=== PATIENT | female | born 1990 | race Caucasian/White ===

== ENCOUNTER 2016-04-11 19:24 | Emergency (ER) | payer OTHER ==
[2016-04-11 19:28] VITALS: BP 143/81; PULSE 80; RESP 18; TEMP 98.1
--- NOTE | 2016-04-11 20:25 | ED ---
General Adult HPI - General Chief complaint: Upper Respiratory Infection Stated complaint: cough/sore throat Source: patient, RN notes reviewed Mode of arrival: ambulatory Limitations: no limitations - History of Present Illness Initial comments: Is a 26-year-old female presents with dry cough, congestion, sneezing and sore throat that started yesterday. Patient denies any fever/chills, otalgia and admits to a mild headache. Patient states she had an episode of vomiting and diarrhea yesterday but this has not reoccurred. He denies any shortness of breath. Patient states she has family at home sick with similar symptoms. Patient did not receive a flu shot this year. Patient denies any recent chest pain, abdominal pain, back pain, numbness, tingling, hematuria, or visual changes, or any other complaints. - Related Data Previous Rx's Medication Instructions Recorded Fluticasone Nasal [place] [Flonase 1 - 2 spray EA NOSTRIL DAILY #1 04/11/16 Nasal [place]] bottle Allergies Allergy/AdvReac Type Severity Reaction Status Date / Time Sulfa (Sulfonamide Allergy Rash/Hives Verified 04/11/16 19:28 Antibiotics) Review of Systems ROS Statement: Those systems with pertinent positive or pertinent negative responses have been documented in the HPI. ROS Other: All systems not noted in ROS Statement are negative. Past Medical History Past Medical History: No Reported History History of Any Multi-Drug Resistant Organisms: None Reported Past Surgical History: Section, Tonsillectomy Past Psychological History: No Psychological Hx Reported Smoking Status: Current every day smoker Past Alcohol Use History: None Reported Past Drug Use History: None Reported General Exam - General Exam Comments Initial Comments: General: The patient is awake and alert, in no distress, and does not appear acutely ill. Eye: Pupils are equal, round and reactive to light, extra-ocular movements are intact. No nystagmus. There is normal conjunctiva bilaterally. No signs of icterus. Ears: TMs pink and pearly with intact cone of light bilaterally. Normal external ear canals Nose: Nasal turbinates mildly erythematous and edematous with discomfort to palpation of the frontal sinus. Mouth and throat: Mild erythema posterior pharynx. There are moist mucous membranes and no oral lesions. Neck: The neck is supple, there is no tenderness or JVD. Cardiovascular: There is a regular rate and rhythm. No murmur, rub or gallop is appreciated. Respiratory: Lungs are clear to auscultation, respirations are non-labored, breath sounds are equal. No wheezes, stridor, rales, or rhonchi. Musculoskeletal: Normal ROM, no tenderness. Strength 5/5. Sensation intact. Radial pulses equal bilaterally 2+. Neurological: A&O x 3. CN II-XII intact, There are no obvious motor or sensory deficits. Coordination appears grossly intact. Speech is normal. Skin: Skin is warm and dry and no rashes or lesions are noted. Psychiatric: Cooperative, appropriate mood & affect, normal judgment. Limitations: no limitations Course Vital Signs 04/11/16 19:26 Temperature 98.1 F Pulse Rate 80 Respiratory 18 Rate Blood Pressure 143/81 O2 Sat by Pulse 98 Oximetry Medical Decision Making - Medical Decision Making This is a 26-year-old female comes with cough 2 days. On physical exam lungs are clear to auscultation bilaterally. Nose: Nasal turbinates mildly erythematous and edematous with discomfort to palpation of the frontal sinus. Mouth and throat: Mild erythema posterior pharynx. There are moist mucous membranes and no oral lesions. Strep and influenza were checked and came back negative. A chest x-ray was done and reviewed showing: Normal chest. Reported by Dr. Valdez. I discussed the results with patient. I discussed sinusitis. I discussed sinusitis is usually viral. I discussed [id number] remedies. Patient will be given a prescription for Flonase. I discussed return parameters. Discussed that patient should follow up with PCP in one to 2 days or return to the [facility] for any worsening symptoms or for any further concerns. Patient was receptive to this plan and patient will be discharged home. - Lab Data Lab Results 04/11/16 04/11/16 Range/Units 19:50 19:50 Influenza Type A RNA Not Detected (Not Detectd) Influenza Type B (PCR) Not Detected (Not Detectd) Group A Strep Rapid Negative (Negative) Disposition Clinical Impression: Sinusitis Disposition: HOME SELF-CARE Condition: Good Instructions: Sinusitis (ED) Additional Instructions: Please use Claritin 10 mg, Sudafed OTC, saline nasal rinse such as netti-pot for symptoms. Please use a nasal spray 1-2 sprays in each nostril daily. May use Tylenol and/or Motrin [id number] for fever and pain symptoms. Please use medication as discussed. Please follow-up with family doctor in the next 2 days of symptoms have not improved. Please return to emergency room if the symptoms increase or worsen or for any other concerns. Prescriptions: Fluticasone Nasal [place] [Flonase Nasal [place]] 1 - 2 spray EA NOSTRIL DAILY #1 bottle Referrals: None,Stated [Primary Care Provider] - 1-2 days Radha Faustin MD [STAFF PHYSICIAN] - 1-2 days Time of Disposition: 20:39
--- NOTE | 2016-04-11 20:37 | XR ---
EXAMINATION TYPE: XR chest 2V DATE OF EXAM: 04/11/2016 8:33 PM COMPARISON: NONE HISTORY: Cough and congestion TECHNIQUE: Frontal and lateral views of the chest are obtained. FINDINGS: Heart and mediastinum are normal. Lungs are clear. Diaphragm is normal. Bony thorax and so ft tissues appear normal. IMPRESSION: Normal chest
== END 2016-04-11 20:45 | disposition home or self-care (01) ==
LOC: EC 19:24
DX: J32.9 Chronic sinusitis, unspecified (principal); Z88.2 Allergy status to sulfonamides; F17.200 Nicotine dependence, unspecified, uncomplicated
CPT/HCPCS: 71020; 87081; 87430; 87502; 99283

== ENCOUNTER 2020-02-17 18:01 | Emergency (ER) | payer OTHER ==
[2020-02-17 18:19] VITALS: BP 157/93; PULSE 83; RESP 18; TEMP 97.9
--- NOTE | 2020-02-17 18:44 | ED ---
General Adult HPI - General Chief complaint: Back Pain/Injury Stated complaint: Lower back pain Time Seen by Provider: 02/17/20 18:25 Source: patient Mode of arrival: ambulatory Limitations: no limitations - History of Present Illness Initial comments: Dictation was produced using [employer] dictation software. please excuse any grammatical, word or spelling errors. This patient was cared for during a federal and state declared state of emergency secondary to Covid 19 Chief Complaint: 30-year-old female presents with hip and back pain History of Present Illness: 30-year-old feel presents today with hip and back pain. Patient states she has history of sciatica. She states that her pain started becoming more noticeable since this morning. Patient states maybe that perhaps her pain started yesterday. Patient denies any unusual increases and exertion. She does not recall anything that may have exacerbated her symptoms. Patient states the pain radiates from her back down to her right gluteal area. Denies any numbness and paresthesias to the leg. Patient states that last time she had symptoms like this she thought maybe that was maybe her urinary tract infection. The ROS documented in this emergency department record has been reviewed and confirmed by me. Those systems with pertinent positive or negative responses have been documented in the HPI. All other systems are other negative and/or noncontributory. PHYSICAL EXAM: General Impression: Alert and oriented x3, not in acute distress HEENT: Normocephalic atraumatic, extra-ocular movements intact, pupils equal and reactive to light bilaterally, mucous membranes moist. Cardiovascular: Heart regular rate and rhythm Chest: Able to complete full sentences, no retractions, no tachypnea Abdomen: abdomen soft, non-tender, non-distended, no organomegaly Musculoskeletal: Pulses present and equal in all extremities, no peripheral edema Motor: no focal deficits noted Neurological: CN II-XII grossly intact, no focal motor or sensory deficits noted, ambulatory with a mild limp Skin: Intact with no visualized rashes Psych: Normal affect and mood ED course: 30-year-old female presents today with hip and back pain. Vital Signs upon arrival are within acceptable limits. Urinalysis unremarkable. Urine hCG is negative. The pelvis x-ray shows no acute processes. Lumbar spine x-rays negative. He does however appear to be some hypertrophic costochondral changes at L2-3. Patient notified of these results patient is advised follow-up with her primary care physician for outpatient management of her symptoms. Patient given by mouth analgesics. - Related Data Previous Rx's Medication Instructions Recorded Fluticasone Nasal [place] [Flonase 1 - 2 spray EA NOSTRIL DAILY #1 04/11/16 Nasal [place]] bottle HYDROcodone/APAP 5-325MG [[place] 1 tab PO Q6HR PRN 3 Days #12 tab 02/17/20 5-325] Allergies Allergy/AdvReac Type Severity Reaction Status Date / Time Sulfa (Sulfonamide Allergy Rash/Hives Verified 02/17/20 18:19 Antibiotics) Review of Systems ROS Statement: Those systems with pertinent positive or pertinent negative responses have been documented in the HPI. ROS Other: All systems not noted in ROS Statement are negative. Past Medical History Past Medical History: No Reported History History of Any Multi-Drug Resistant Organisms: None Reported Past Surgical History: Section, Tonsillectomy Past Psychological History: No Psychological Hx Reported Smoking Status: Current every day smoker Past Alcohol Use History: None Reported Past Drug Use History: None Reported General Exam Limitations: no limitations Course Vital Signs 02/17/20 18:15 Temperature 97.9 F Pulse Rate 83 Respiratory 18 Rate Blood Pressure 157/93 O2 Sat by Pulse 98 Oximetry Medical Decision Making - Lab Data Lab Results 02/17/20 02/17/20 Range/Units 18:34 18:34 Urine Color Yellow Urine Appearance Cloudy H (Clear) Urine pH 6.5 (5.0-8.0) Ur Specific [place] 1.030 (1.001-1.035) Urine Protein Trace H (Negative) Urine Glucose (UA) Negative (Negative) Urine Ketones Negative (Negative) Urine Blood Moderate H (Negative) Urine Nitrite Negative (Negative) Urine Bilirubin Negative (Negative) Urine Urobilinogen 2.0 (<2.0) mg/dL Ur Leukocyte Esterase Negative (Negative) Urine RBC 1 (0-5) /hpf Urine WBC 4 (0-5) /hpf Ur Squamous Epith Cells 21 H (0-4) /hpf Amorphous Sediment Few H (None) /hpf Urine Bacteria Rare H (None) /hpf Urine Mucus Rare H (None) /hpf Urine HCG, Qual Not Detected (Not Detectd) Disposition Clinical Impression: Back pain, Hip pain Disposition: HOME SELF-CARE Condition: Good Instructions (If sedation given, give patient instructions): Acute Low Back Pain (ED) Prescriptions: HYDROcodone/APAP 5-325MG [[place] 5-325] 1 tab PO Q6HR PRN 3 Days #12 tab PRN Reason: Severe Pain Is patient prescribed a controlled substance at d/c from ED?: Yes If prescribed controlled substance>3 days was MAPS reviewed?: Prescribed <3 Days Referrals: Kenneth Bateman MD [Primary Care Provider] - 1-2 days Time of Disposition: 19:52
[2020-02-17 18:56] LABS: Amorphous Sediment,Urine Few /hpf; Appearance,Urine Cloudy (Clear); Bacteria,Urine Rare /hpf; Bilirubin,Urine Negative (Negative); Blood,Urine Moderate (Negative); Color,Urine Yellow; Glucose,Urine (UA) Negative (Negative); Ketones,Urine Negative (Negative); Leukocyte Esterase,Urine Negative (Negative); Mucus,Urine Rare /hpf; Nitrite,Urine Negative (Negative); PH, Urine 6.5 (5.0-8.0); Protein,Urine Trace (Negative); RBC,Urine 1 /hpf (0-5); Squamous Epithelial Cell,Urine 21 /hpf (0-4); WBC,Urine 4 /hpf (0-5)
--- NOTE | 2020-02-17 19:38 | XR ---
EXAMINATION TYPE: XR lumbar spine 2 or 3V DATE OF EXAM: 02/17/2020 COMPARISON: NONE HISTORY: Back pain TECHNIQUE: 3 views FINDINGS: Lumbar vertebra have normal alignment. There is some anterior spurring at L2-3. Posterior e lements are intact. There is no compression fracture. Sacroiliac joints are intact. IMPRESSION: No acute abnormality of the lumbar spine. No fracture. There are some hypertrophic osteoc hondral changes at L2-3.
--- NOTE | 2020-02-17 19:44 | XR ---
EXAMINATION TYPE: XR Hip RT and AP Pelvis DATE OF EXAM: 02/17/2020 COMPARISON: NONE HISTORY: Pain TECHNIQUE: 3 views FINDINGS: Pelvic ring is intact. Proximal right femur and hip joint appear normal. Sacroiliac joints appear normal. Hip joint spaces are normal. IMPRESSION: Negative right hip exam.
[2020-02-17] MEDS ORDERED: ACET/COD 300 MG/30 MG STARTER PACK 6 TAB BTL PO STA (19:54)
== END 2020-02-17 20:08 | disposition home or self-care (01) ==
LOC: EC 18:01
DX: M54.5 Low back pain (principal); M25.551 Pain in right hip; F17.200 Nicotine dependence, unspecified, uncomplicated; Z88.2 Allergy status to sulfonamides
CPT/HCPCS: 72100; 73502; 81001; 81025; 99283

== ENCOUNTER → 2020-09-26 | Outpatient (CLI) | payer OTHER ==
--- NOTE | 2020-09-26 11:51 | P.STRESS ---
- Stress Test Note Stress Test Results/Findings: Exam Performed: stress test Exam Date: 09/26/20 Reason for Exam: FAMILY HX OF CAD Height: 5 ft 5 in Weight: 107 kg Protocol: IRVIN Stage: 3 Duration of Exercise: 7:15 Resting Heart Rate: 78 Resting Blood Pressure: 114/78 Maximum Achieved Heart Rate: 181 Maximum Achieved Blood Pressure: 183/92 85% PMHR: 163 100% PMHR: 192 METS: 8.7 Technologist Comment: Stress Test Results/Findings: Patient underwent exercise stress EKG with a Irvin protocol treadmill stress test. Patient exercised into Stage 3 for a total of 7 minutes 15 seconds reaching a total of the 8.7 METS. Patient's maximum heart rate was 180 which represented 94% age-predicted maximum heart rate. Stress EKG findings: At baseline patient's EKG showed normal sinus rhythm, normal axis, no significant ST or T-wave abnormalities. At peak exercise, EKG showed no significant change from baseline. Conclusions: 1. Normal EKG response to exercise without evidence of inducible ischemia. 2. Fair exercise capacity.
== END | disposition home or self-care (01) ==
LOC: RADNMMAIN 08:38
PROVIDERS: ATTEND Family Medicine
DX: I20.9 Angina pectoris, unspecified (principal); R06.02 Shortness of breath; Z82.49 Family history of ischemic heart disease and other diseases of the circulatory system
CPT/HCPCS: 93017

== ENCOUNTER → 2021-02-08 | Outpatient (CLI) | payer OTHER | END | disposition home or self-care (01) | LOC: LABWHC1 15:15 | PROVIDERS: ATTEND Obstetrics & Gynecology | DX: N91.2 Amenorrhea, unspecified (principal) | CPT/HCPCS: 36415; 84702 ==

== ENCOUNTER → 2021-02-12 | Outpatient (CLI) | payer OTHER | END | disposition home or self-care (01) | LOC: LABWHC1 13:18 | PROVIDERS: ATTEND Obstetrics & Gynecology | DX: Z33.1 Pregnant state, incidental (principal); Z3A.00 Weeks of gestation of pregnancy not specified | CPT/HCPCS: 36415; 84702 ==

== ENCOUNTER → 2021-02-15 | Outpatient (CLI) | payer OTHER | END | disposition home or self-care (01) | LOC: LABWHC1 15:38 | PROVIDERS: ATTEND Obstetrics & Gynecology | DX: Z33.1 Pregnant state, incidental (principal) | CPT/HCPCS: 36415; 84702 ==

== ENCOUNTER 2021-10-02 19:50 | Inpatient (IN) | payer OTHER ==
[2021-10-02] MEDS ORDERED: LABETALOL 5 MG/ML VIAL MDV IVP STA ×2 (20:10→21:27)
[2021-10-02] MEDS ORDERED: MAGNESIUM SULFATE-WATER PMX 4 GM in WATER FOR INJECTION 1 100ML.BAG IVPB STA (20:14)
[2021-10-02] MEDS ORDERED: MAGNESIUM SULFATE-D5W PMX 1 GM in DEXTROSE/WATER 1 100ML.BAG IVPB SCH (20:15)
[2021-10-02] MEDS: MAGNESIUM SULFATE-WATER PMX 20 GM in WATER FOR INJECTION 1 500ML.BAG IV SCH (20:35)
[2021-10-02 20:37] LABS: Basophils % (A) 1 %; Eosinophils # (A) 0.1 k/uL (0-0.7); Eosinophils % (A) 1 %; HCT 22.8 % (34.0-46.0); HGB 7.2 gm/dL (11.4-16.0); Hypochromasia Slight; Lymphocytes # (A) 1.7 k/uL (1.0-4.8); Lymphocytes % (A) 25 %; MCH 26.9 pg (25.0-35.0); MCHC 31.7 g/dL (31.0-37.0); MCV 84.8 fL (80.0-100.0); Mean Platelet Volume 7.6; Monocytes # (A) 0.3 k/uL (0-1.0); Monocytes % (A) 5 %; Neutrophils # (A) 4.5 k/uL (1.3-7.7); Neutrophils % (A) 66 %; Platelet Count 398 k/uL (150-450); Poikilocytosis Slight; RBC 2.69 m/uL (3.80-5.40); RDW 13.8 % (11.5-15.5); WBC 6.8 k/uL (3.8-10.6)
[2021-10-02 20:50] LABS: ALT 20 U/L (4-34); AST 26 U/L (14-36); African American GFR (CKD) >90 (>60 ml/min/1.73 sqM); Alkaline Phosphatase 80 U/L (38-126); Anion Gap 11 mmol/L; Blood Urea Nitrogen 11 mg/dL (7-17); Calcium 8.6 mg/dL (8.4-10.2); Carbon Dioxide 20 mmol/L (22-30); Chloride 107 mmol/L (98-107); Glucose 80 mg/dL (74-99); LDH 743 U/L (313-618); Non-African American GFR(CKD) >90 (>60 ml/min/1.73 sqM); Potassium 3.8 mmol/L (3.5-5.1); Sodium 138 mmol/L (137-145); Total Bilirubin 0.5 mg/dL (0.2-1.3); Total Protein 5.8 g/dL (6.3-8.2); Uric Acid 6.4 mg/dL (3.7-7.4)
--- NOTE | 2021-10-02 20:54 | XR ---
EXAMINATION TYPE: XR chest 2V DATE OF EXAM: 10/02/2021 COMPARISON: 04/11/2016 HISTORY: Cough TECHNIQUE: 2 views FINDINGS: There is some pulmonary interstitial edema. Heart size is fairly normal. No pleural effusio n. Bony thorax is intact. IMPRESSION: There is pulmonary interstitial edema which appears new compared to old exam and could be acute interstitial pneumonia.
[2021-10-02 20:57] LABS: INR 0.9 (<1.2); Prothrombin Time 10.2 sec (9.0-12.0)
--- NOTE | 2021-10-02 22:25 | ED ---
SOB HPI - General Chief Complaint: Shortness of Breath Stated Complaint: DIONISIO, cough Source: patient Mode of arrival: ambulatory - History of Present Illness Initial Comments: 31-year-old female who is , 7 days presents to the emergency department for shortness of breath. She did have a history of preeclampsia and was delivered he has at 37 weeks because of it. Her OB was Dr. Terry out of [facility]. She did have a follow-up appointment yesterday where her raven removed. She was complaining of continued lower extremity edema and Dr. Terry placed her on a diuretic. States that she has not picked it up from the pharmacy yet. Her blood pressure was around 140/80 and she was not having the symptoms of shortness of breath. States that overnight she became short of breath with a nonproductive cough. Also has a headache without visual changes. No abdominal pain. No fevers or chills. No nausea or vomiting. He is currently not taking any medications for blood pressure at this time. She denies any chest pain. Currently is breast-feeding. No other alleviating, precipitating or modifying factors - Related Data Home Medications Medication Instructions Recorded Confirmed No Known Home Medications 10/02/21 10/02/21 Allergies Allergy/AdvReac Type Severity Reaction Status Date / Time Sulfa (Sulfonamide Allergy Rash/Hives Verified 10/02/21 23:06 Antibiotics) Review of Systems ROS Statement: Those systems with pertinent positive or pertinent negative responses have been documented in the HPI. ROS Other: All systems not noted in ROS Statement are negative. Past Medical History Past Medical History: No Reported History History of Any Multi-Drug Resistant Organisms: None Reported Past Surgical History: Section, Tonsillectomy Past Psychological History: No Psychological Hx Reported Smoking Status: Vaper Course Vital Signs 10/02/21 10/02/21 10/02/21 19:57 20:40 21:21 Temperature 98.0 F Pulse Rate 91 86 79 Respiratory 24 20 24 Rate Blood Pressure 162/102 140/89 152/95 O2 Sat by Pulse 91 L 96 95 Oximetry 10/02/21 10/02/21 10/02/21 22:07 22:37 22:41 Temperature Pulse Rate 79 Respiratory 24 24 26 H Rate Blood Pressure 143/86 141/89 O2 Sat by Pulse 95 96 Oximetry 10/02/21 23:39 Temperature Pulse Rate 78 Respiratory 14 Rate Blood Pressure 133/80 O2 Sat by Pulse 93 L Oximetry Medical Decision Making - Medical Decision Making Upon arrival patient is promptly placed into trauma 1. Thorough history and physical exam was performed. Patient's blood pressure is 160/102 with a oxygen saturation of 80% on room air. She is placed on 4 L nasal cannula. IV is established. Patient was given 20 mg of labetalol and 4 g of magnesium. Laboratory studies are conducted. Hemoglobin 7.2. D-dimer 4.8. BNP 1000 780. LDH 746. Urinalysis does demonstrate rare bacteria. She is given a dose of Rocephin for her abnormal UA. Chest x-ray demonstrates pulmonary edema which is followed by a CT of the chest which demonstrates pleural effusions and groundglass opacities. I spoke with Dr. Castaneda who was agreeable to keeping the patient at her facility as she does not want to be transferred to [facility] where she delivered. He would like to be placed on consult as he is concerned that the patient will additionally need cardiology consultation. Spoke with Luisa from [facility] who was agreeable to admission. Spoke with Dr. Lucio who stated that diuresis would be helpful. Patient is informed of this and agreeable. Admitted to 3 S. with a guarded prognosis - Lab Data Result diagrams: 10/02/21 20:26 10/02/21 20:26 Lab Results 10/02/21 10/02/21 10/02/21 Range/Units 20:26 20:26 20:26 WBC 6.8 (3.8-10.6) k/uL RBC 2.69 L (3.80-5.40) m/uL Hgb 7.2 L (11.4-16.0) gm/dL Hct 22.8 L (34.0-46.0) % MCV 84.8 (80.0-100.0) fL MCH 26.9 (25.0-35.0) pg MCHC 31.7 (31.0-37.0) g/dL RDW 13.8 (11.5-15.5) % Plt Count 398 (150-450) k/uL MPV 7.6 Neutrophils % 66 % Lymphocytes % 25 % Monocytes % 5 % Eosinophils % 1 % Basophils % 1 % Neutrophils # 4.5 (1.3-7.7) k/uL Lymphocytes # 1.7 (1.0-4.8) k/uL Monocytes # 0.3 (0-1.0) k/uL Eosinophils # 0.1 (0-0.7) k/uL Basophils # 0.0 (0-0.2) k/uL Hypochromasia Slight Poikilocytosis Slight PT 10.2 (9.0-12.0) sec INR 0.9 (<1.2) D-Dimer 4.84 H (<0.60) mg/L FEU Sodium 138 (137-145) mmol/L Potassium 3.8 (3.5-5.1) mmol/L Chloride 107 (98-107) mmol/L Carbon Dioxide 20 L (22-30) mmol/L Anion Gap 11 mmol/L BUN 11 (7-17) mg/dL Creatinine 0.70 (0.52-1.04) mg/dL Est GFR (CKD-EPI)AfAm >90 (>60 ml/min/1.73 sqM) Est GFR (CKD-EPI)NonAf >90 (>60 ml/min/1.73 sqM) Glucose 80 (74-99) mg/dL Uric Acid 6.4 (3.7-7.4) mg/dL Calcium 8.6 (8.4-10.2) mg/dL Total Bilirubin 0.5 (0.2-1.3) mg/dL AST 26 (14-36) U/L ALT 20 (4-34) U/L Alkaline Phosphatase 80 (38-126) U/L Lactate Dehydrogenase 743 H (313-618) U/L Troponin I (0.000-0.034) ng/mL NT-Pro-B Natriuret Pep pg/mL Total Protein 5.8 L (6.3-8.2) g/dL Albumin 3.0 L (3.5-5.0) g/dL Urine Color Urine Appearance (Clear) Urine pH (5.0-8.0) Ur Specific [place] (1.001-1.035) Urine Protein (Negative) Urine Glucose (UA) (Negative) Urine Ketones (Negative) Urine Blood (Negative) Urine Nitrite (Negative) Urine Bilirubin (Negative) Urine Urobilinogen (<2.0) mg/dL Ur Leukocyte Esterase (Negative) Urine RBC (0-5) /hpf Urine WBC (0-5) /hpf Ur Squamous Epith Cells (0-4) /hpf Urine Bacteria (None) /hpf Urine Mucus (None) /hpf 10/02/21 10/02/21 10/02/21 Range/Units 20:26 20:26 22:07 WBC (3.8-10.6) k/uL RBC (3.80-5.40) m/uL Hgb (11.4-16.0) gm/dL Hct (34.0-46.0) % MCV (80.0-100.0) fL MCH (25.0-35.0) pg MCHC (31.0-37.0) g/dL RDW (11.5-15.5) % Plt Count (150-450) k/uL MPV Neutrophils % % Lymphocytes % % Monocytes % % Eosinophils % % Basophils % % Neutrophils # (1.3-7.7) k/uL Lymphocytes # (1.0-4.8) k/uL Monocytes # (0-1.0) k/uL Eosinophils # (0-0.7) k/uL Basophils # (0-0.2) k/uL Hypochromasia Poikilocytosis PT (9.0-12.0) sec INR (<1.2) D-Dimer (<0.60) mg/L FEU Sodium (137-145) mmol/L Potassium (3.5-5.1) mmol/L Chloride (98-107) mmol/L Carbon Dioxide (22-30) mmol/L Anion Gap mmol/L BUN (7-17) mg/dL Creatinine (0.52-1.04) mg/dL Est GFR (CKD-EPI)AfAm (>60 ml/min/1.73 sqM) Est GFR (CKD-EPI)NonAf (>60 ml/min/1.73 sqM) Glucose (74-99) mg/dL Uric Acid (3.7-7.4) mg/dL Calcium (8.4-10.2) mg/dL Total Bilirubin (0.2-1.3) mg/dL AST (14-36) U/L ALT (4-34) U/L Alkaline Phosphatase (38-126) U/L Lactate Dehydrogenase (313-618) U/L Troponin I <0.012 (0.000-0.034) ng/mL NT-Pro-B Natriuret Pep 1780 pg/mL Total Protein (6.3-8.2) g/dL Albumin (3.5-5.0) g/dL Urine Color Yellow Urine Appearance Cloudy H (Clear) Urine pH 6.5 (5.0-8.0) Ur Specific [place] 1.011 (1.001-1.035) Urine Protein 1+ H (Negative) Urine Glucose (UA) Negative (Negative) Urine Ketones Negative (Negative) Urine Blood Large H (Negative) Urine Nitrite Negative (Negative) Urine Bilirubin Negative (Negative) Urine Urobilinogen <2.0 (<2.0) mg/dL Ur Leukocyte Esterase Large H (Negative) Urine RBC >182 H (0-5) /hpf Urine WBC 111 H (0-5) /hpf Ur Squamous Epith Cells 2 (0-4) /hpf Urine Bacteria Rare H (None) /hpf Urine Mucus Rare H (None) /hpf - EKG Data EKG Comments: EKG demonstrates sinus rhythm with a rate of 80. ND interval 152. QRS 116. QTC of 426. Inverted T-wave with mild ST depression in lead 3. Mild ST depression in V5 and V6 Disposition Clinical Impression: Eclampsia, Hypertension Disposition: ADMITTED IP TO THIS HOSP Condition: Serious Is patient prescribed a controlled substance at d/c from ED?: No Time of Disposition: 23:15 Decision to Admit Reason: Admit from EC Decision Date: 10/02/21 Decision Time: 23:16
[2021-10-02 22:30] LABS: Appearance,Urine Cloudy (Clear); Bacteria,Urine Rare /hpf; Bilirubin,Urine Negative (Negative); Blood,Urine Large (Negative); Color,Urine Yellow; Glucose,Urine (UA) Negative (Negative); Ketones,Urine Negative (Negative); Leukocyte Esterase,Urine Large (Negative); Mucus,Urine Rare /hpf; Nitrite,Urine Negative (Negative); PH, Urine 6.5 (5.0-8.0); Protein,Urine 1+ (Negative); RBC,Urine >182 /hpf (0-5); Specific Gravity,Urine 1.011 (1.001-1.035); Squamous Epithelial Cell,Urine 2 /hpf (0-4); Urobilinogen,Urine <2.0 mg/dL (<2.0); WBC,Urine 111 /hpf (0-5)
--- NOTE | 2021-10-02 22:35 | CT ---
EXAMINATION TYPE: CT chest angio for PE DATE OF EXAM: 10/02/2021 COMPARISON: None HISTORY: SOB, elevated d dimer CT DLP: 779.6 mGycm Automated exposure control for dose reduction was used. CONTRAST: Performed with IV Contrast, patient injected with 100ml mL of Isovue 370. There are 3-D post processed images. There is small right and left pleural effusion. Heart size is fairly normal. There is diffuse pulmona ry interstitial edema with patchy groundglass densities throughout the lungs. There are no hilar mass es. There is no mediastinal adenopathy. There is no evidence of filling defect in the pulmonary arteries. The thoracic vertebra appear intact. No compression fracture. Sternum is intact. No evidence of rib f racture. The thoracic aorta appears normal. The upper abdominal soft tissues are intact. IMPRESSION: No evidence of pulmonary embolism. There is some patchy bilateral upper and lower lobe groundglass in terstitial pulmonary infiltrates. Small bilateral pleural effusions.
[2021-10-02] MEDS ORDERED: cefTRIAXone IN SWFI 1,000 MG/10 ML SYRINGE IVP STA (23:06)
[2021-10-02] MEDS ORDERED: ACETAMINOPHEN TAB 500 MG TAB PO STA (23:15)
[2021-10-02] MEDS ORDERED: NALOXONE 0.4 MG/ML 1 ML VIAL IV PRN (23:16)
[2021-10-03] MEDS ORDERED: LABETALOL 5 MG/ML VIAL MDV IVP PRN (00:47)
[2021-10-03] MEDS ORDERED: FUROSEMIDE 10 MG/ML 4 ML VIAL IV STA (00:51)
[2021-10-03] MEDS: ACETAMINOPHEN TAB 325 MG TAB PO PRN ×2 (02:44→13:32)
[2021-10-03] MEDS: IPRATROPIUM-ALBUTEROL 3 ML NEB INHALATION PRN ×4 (02:47→15:41)
[2021-10-03] MEDS: MAGNESIUM SULFATE-WATER PMX 20 GM in WATER FOR INJECTION 1 500ML.BAG IV SCH ×2 (05:45→18:17)
--- NOTE | 2021-10-03 06:51 | P.HPOB ---
History of Present Illness H&P Date: 10/03/21 Chief Complaint: Shortness of breath status post This patient is a 31-year-old 3 para 3 female who is status post a repeat section on September [address] Terry at [facility]. Patient states that she had a section done at 37 weeks due to previous classical section with her first and because she had elevated blood pressures. Patient indicates that she was in the hospital for approximately [address] Terry in the office on Friday and was having some shortness of breath and peripheral edema and apparently he was going to send and a diuretic. Patient became acutely short of breath overnight Friday night and Friday presented to this emergency department. Evaluation here showed an elevated blood pressure 162/107. Patient had evidence of pulmonary edema. She did have a chest CT that ruled out pulmonary embolism. Her hemoglobin also was 7.2. I asked her if she did have excessive bleeding at the time of delivery and she was uncertain however she states that she has been on iron for the last 2 weeks. Patient did have a tubal ligation at the time of her section. Review of Systems Constitutional: Reports as per HPI Cardiovascular: Reports shortness of breath Respiratory: Reports as per HPI, Reports cough Genitourinary: Reports as per HPI Past Medical History Past Medical History: No Reported History History of Any Multi-Drug Resistant Organisms: None Reported Past Surgical History: Section, Tonsillectomy Additional Past Surgical History / Comment(s): C section x3 Past Anesthesia/Blood Transfusion Reactions: No Reported Reaction Past Psychological History: No Psychological Hx Reported Smoking Status: Vaper Past Alcohol Use History: None Reported Past Drug Use History: None Reported Medications and Allergies Home Medications Medication Instructions Recorded Confirmed Type No Known Home Medications 10/02/21 10/02/21 History Allergies Allergy/AdvReac Type Severity Reaction Status Date / Time Sulfa (Sulfonamide Allergy Rash/Hives Verified 10/02/21 23:06 Antibiotics) Exam Vital Signs Temp Pulse Pulse Resp BP BP Pulse Ox 10/03/21 05:56 84 17 130/83 100 10/03/21 03:36 97.7 F 80 17 146/91 95 10/03/21 03:00 95 10/03/21 02:47 88 10/03/21 01:55 97 10/03/21 01:49 97.6 F 86 26 H 156/98 85 L 10/02/21 23:39 78 14 133/80 93 L 10/02/21 22:41 26 H 10/02/21 22:37 79 24 141/89 96 10/02/21 22:07 24 143/86 95 10/02/21 21:21 79 24 152/95 95 10/02/21 20:40 86 20 140/89 96 10/02/21 19:57 98.0 F 91 24 162/102 91 L Intake and Output 10/02/21 10/02/21 10/03/21 14:59 22:59 06:59 Intake Total 458.333 Output Total 4050 Balance -3591.667 Intake: Intake, IV Titration 458.333 Amount Magnesium Sulfate-Water 458.333 Pmx 20 gm In Water For Injection 1 500ml.bag @ 2 GM/HR 50 mls/hr IV .Q10H [facility] Rx#:[id number] Output: Urine 4050 Other: Voiding Method Bedside Commode Weight 117.934 kg 116.1 kg - OBG Physical Exam Abdomen: Exam is limited to her abdomen. She has Steri-Strips in place. Her incision appears intact and dry Results Result Diagrams: 10/02/21 20:26 10/02/21 20:26 Abnormal Lab Results - Last 24 Hours (Table) 10/02/21 10/02/21 10/02/21 Range/Units 20:26 20:26 20:26 RBC 2.69 L (3.80-5.40) m/uL Hgb 7.2 L (11.4-16.0) gm/dL Hct 22.8 L (34.0-46.0) % D-Dimer 4.84 H (<0.60) mg/L FEU Carbon Dioxide 20 L (22-30) mmol/L Lactate Dehydrogenase 743 H (313-618) U/L Total Protein 5.8 L (6.3-8.2) g/dL Albumin 3.0 L (3.5-5.0) g/dL Urine Appearance (Clear) Urine Protein (Negative) Urine Blood (Negative) Ur Leukocyte Esterase (Negative) Urine RBC (0-5) /hpf Urine WBC (0-5) /hpf Urine Bacteria (None) /hpf Urine Mucus (None) /hpf 10/02/21 Range/Units 22:07 RBC (3.80-5.40) m/uL Hgb (11.4-16.0) gm/dL Hct (34.0-46.0) % D-Dimer (<0.60) mg/L FEU Carbon Dioxide (22-30) mmol/L Lactate Dehydrogenase (313-618) U/L Total Protein (6.3-8.2) g/dL Albumin (3.5-5.0) g/dL Urine Appearance Cloudy H (Clear) Urine Protein 1+ H (Negative) Urine Blood Large H (Negative) Ur Leukocyte Esterase Large H (Negative) Urine RBC >182 H (0-5) /hpf Urine WBC 111 H (0-5) /hpf Urine Bacteria Rare H (None) /hpf Urine Mucus Rare H (None) /hpf Microbiology - Last 24 Hours (Table) 10/02/21 22:07 Urine Culture - Preliminary Urine,Voided Assessment and Plan Assessment: This is a 31-year-old 3 para 3 female status post repeat section with tubal ligation at an outside facility approximately 8 days ago who presents with shortness of breath, hypertension, and evidence of pulmonary edema. Patient is already been placed on magnesium sulfate for possible preeclampsia. My recommendations are to continue the magnesium sulfate for 24 hours and then discontinue. Otherwise patient is under the care of medicine for her pulmonary care. She does have an appointment with her primary cook fry Dr. Terry on Friday and therefore was instructed to make sure on discharge she follows up with him at that time. I'm uncertain as to the etiology of her anemia. This could be chronic in nature however I do not have records of her previous hemoglobin was her other cook fry. Certainly this could be surgical in nature as well. Therefore it will have to be followed closely. Patient this time does appear to be diuresing and is feeling better. (1) Preeclampsia Current Visit: Yes Status: Acute Code(s): O14.90 - UNSPECIFIED PRE- ECLAMPSIA, UNSPECIFIED TRIMESTER SNOMED Code(s): 616148902 (2) Pulmonary edema Current Visit: Yes Status: Acute Code(s): J81.1 - CHRONIC PULMONARY EDEMA SNOMED Code(s): 79385652 (3) Anemia Current Visit: Yes Status: Acute Code(s): D64.9 - ANEMIA, UNSPECIFIED SNOMED Code(s): 768599118
[2021-10-03] MEDS ORDERED: HYDROcodone/APAP 5-325MG 1 EACH TAB PO STA ×2 (06:55→17:58)
[2021-10-03 07:42] LABS: Basophils % (A) 0 %; Eosinophils # (A) 0.1 k/uL (0-0.7); Eosinophils % (A) 1 %; HCT 24.1 % (34.0-46.0); HGB 7.7 gm/dL (11.4-16.0); Hypochromasia Slight; Lymphocytes # (A) 1.3 k/uL (1.0-4.8); Lymphocytes % (A) 17 %; MCH 27.1 pg (25.0-35.0); MCHC 31.8 g/dL (31.0-37.0); MCV 85.2 fL (80.0-100.0); Mean Platelet Volume 7.6; Monocytes # (A) 0.4 k/uL (0-1.0); Monocytes % (A) 4 %; Neutrophils # (A) 6.1 k/uL (1.3-7.7); Neutrophils % (A) 76 %; Platelet Count 414 k/uL (150-450); Poikilocytosis Slight; RBC 2.83 m/uL (3.80-5.40); RDW 13.9 % (11.5-15.5)
[2021-10-03 08:08] LABS: African American GFR (CKD) >90 (>60 ml/min/1.73 sqM); Anion Gap 14 mmol/L; Blood Urea Nitrogen 9 mg/dL (7-17); Calcium 7.9 mg/dL (8.4-10.2); Carbon Dioxide 23 mmol/L (22-30); Chloride 101 mmol/L (98-107); Glucose 130 mg/dL (74-99); Non-African American GFR(CKD) >90 (>60 ml/min/1.73 sqM); Potassium 3.6 mmol/L (3.5-5.1); Sodium 138 mmol/L (137-145)
[2021-10-03] MEDS ORDERED: FUROSEMIDE 20 MG TAB PO SCH (09:00)
--- NOTE | 2021-10-03 09:48 | P.HPIM ---
History of Present Illness This is a pleasant 31 years old female with no past medical history. Patient states that she does not have PCP and she does not follow up with one. She had surgery about 8 days ago. She presents because of dyspnea of one-day duration associated with dry cough but no chest pain with mild to moderate headache for the last 3 days. She denies any chest pain. No nausea vomiting or diarrhea. No urgency or dysuria however she was starting well up after she received 1 dose of Lasix today. No dizziness or weakness or numbness. She denies smoking, alcohol or illicit drugs. On admission patient is afebrile, she was saturating 91% on room air. Blood pressure 162/102. She is tachypneic about 24/m.. This morning she is less tachypneic, however she is saturating 94% on 7 L oxygen via nasal cannula, they have to go up because her oxygen dropped to 85% on 4 L yesterday. Labs show an unremarkable CBC except for anemia with hemoglobin 7.2. D-dimer is 4.8. BMP is unremarkable. Creatinine 0.7. Liver enzymes not elevated. Lactic dehydrogenase 743. Troponin is negative less than 0.012. ProBNP is 1780. Urine analysis is suspicious for large leukocyte esterase, more than 182 RBC and 111 WBC EKG: Normal sinus rhythm at [address]-T changes. QTC 426. Chest x-ray: There is pulmonary interstitial edema which appears new compared to old exam, it could be also acute interstitial pneumonia CTA of the chest showed no evidence of pulmonary embolism. There is some patchy bilateral upper and lower lobe ground glass interstitial pulmonary infiltrates. Small bilateral pleural effusions In the emergency room patient received Tylenol, ceftriaxone, labetalol. Also she received magnesium sulfate. In the emergency room both cardiology and [employer]'s team's was consulted Review of Systems Review of systems CONSTITUTIONAL: No fever, no malaise, no fatigue. HEENT: No recent visual problems or hearing problems. Denied any sore throat. CARDIOVASCULAR: No orthopnea, PND, no palpitations, no syncope. PULMONARY: No chest wall tenderness, no hemoptysis. GASTROINTESTINAL: No diarrhea, no nausea, no vomiting, no abdominal pain. Normoactive bowel sounds. NEUROLOGICAL: No headaches, no weakness, no numbness. HEMATOLOGICAL: Denies any bleeding or petechiae. GENITOURINARY: Denies any burning micturition, frequency, or urgency. MUSCULOSKELETAL/RHEUMATOLOGICAL: Denies any joint pain, swelling, or any muscle pain. ENDOCRINE: Denies any polyuria or polydipsia. Past Medical History Past Medical History: No Reported History History of Any Multi-Drug Resistant Organisms: None Reported Past Surgical History: Section, Tonsillectomy Additional Past Surgical History / Comment(s): C section x3 Past Anesthesia/Blood Transfusion Reactions: No Reported Reaction Past Psychological History: No Psychological Hx Reported Smoking Status: Vaper Past Alcohol Use History: None Reported Past Drug Use History: None Reported Medications and Allergies Home Medications Medication Instructions Recorded Confirmed Type No Known Home Medications 10/02/21 10/02/21 History Allergies Allergy/AdvReac Type Severity Reaction Status Date / Time Sulfa (Sulfonamide Allergy Rash/Hives Verified 10/02/21 23:06 Antibiotics) Physical Exam Vitals: Vital Signs Temp Pulse Pulse Resp BP BP Pulse Ox 10/03/21 05:56 84 17 130/83 100 10/03/21 03:36 97.7 F 80 17 146/91 95 10/03/21 03:00 95 10/03/21 02:47 88 10/03/21 01:55 97 10/03/21 01:49 97.6 F 86 26 H 156/98 85 L 10/02/21 23:39 78 14 133/80 93 L 10/02/21 22:41 26 H 10/02/21 22:37 79 24 141/89 96 10/02/21 22:07 24 143/86 95 10/02/21 21:21 79 24 152/95 95 10/02/21 20:40 86 20 140/89 96 10/02/21 19:57 98.0 F 91 24 162/102 91 L Intake and Output 10/02/21 10/02/21 10/03/21 14:59 22:59 06:59 Intake Total 458.333 Output Total 4050 Balance -3591.667 Intake: Intake, IV Titration 458.333 Amount Magnesium Sulfate-Water 458.333 Pmx 20 gm In Water For Injection 1 500ml.bag @ 2 GM/HR 50 mls/hr IV .Q10H [facility] Rx#:[id number] Output: Urine 4050 Other: Voiding Method Bedside Commode Weight 117.934 kg 116.1 kg -GENERAL: The patient is alert and oriented x3, not in any acute distress. Obese HEENT: Pupils are round and equally reacting to light. EOMI. No scleral icterus. No conjunctival pallor. Normocephalic, atraumatic. No pharyngeal erythema. No thyromegaly. CARDIOVASCULAR: S1 and S2 present. No murmurs, rubs, or gallops. -PULMONARY: Chest is clear to auscultation, no wheezing . bilateral crepitation ABDOMEN: Soft, nontender, nondistended, normoactive bowel sounds. No palpable organomegaly. MUSCULOSKELETAL: No joint swelling or deformity. EXTREMITIES: No cyanosis, clubbing, or pedal edema. NEUROLOGICAL: Gross neurological examination did not reveal any focal deficits. SKIN: No rashes. no petechiae. Results CBC & Chem 7: 10/03/21 07:13 10/03/21 07:13 Labs: Abnormal Lab Results - Last 24 Hours (Table) 10/02/21 10/02/21 10/02/21 Range/Units 20:26 20:26 20:26 RBC 2.69 L (3.80-5.40) m/uL Hgb 7.2 L (11.4-16.0) gm/dL Hct 22.8 L (34.0-46.0) % D-Dimer 4.84 H (<0.60) mg/L FEU Carbon Dioxide 20 L (22-30) mmol/L Lactate Dehydrogenase 743 H (313-618) U/L Total Protein 5.8 L (6.3-8.2) g/dL Albumin 3.0 L (3.5-5.0) g/dL Urine Appearance (Clear) Urine Protein (Negative) Urine Blood (Negative) Ur Leukocyte Esterase (Negative) Urine RBC (0-5) /hpf Urine WBC (0-5) /hpf Urine Bacteria (None) /hpf Urine Mucus (None) /hpf 10/02/21 Range/Units 22:07 RBC (3.80-5.40) m/uL Hgb (11.4-16.0) gm/dL Hct (34.0-46.0) % D-Dimer (<0.60) mg/L FEU Carbon Dioxide (22-30) mmol/L Lactate Dehydrogenase (313-618) U/L Total Protein (6.3-8.2) g/dL Albumin (3.5-5.0) g/dL Urine Appearance Cloudy H (Clear) Urine Protein 1+ H (Negative) Urine Blood Large H (Negative) Ur Leukocyte Esterase Large H (Negative) Urine RBC >182 H (0-5) /hpf Urine WBC 111 H (0-5) /hpf Urine Bacteria Rare H (None) /hpf Urine Mucus Rare H (None) /hpf Microbiology - Last 24 Hours (Table) 10/02/21 22:07 Urine Culture - Preliminary Urine,Voided Thrombosis Risk Factor Assmnt - Choose All That Apply Any of the Below Risk Factors Present?: No Other Risk Factors: No Other congenital or acquired thrombophilia - If yes, enter type in comment: No Thrombosis Risk Factor Assessment Level: Very Low Risk Assessment and Plan Assessment: Acute pulmonary edema, rule out cardiomyopathy Acute hypoxic respiratory failure Possible urinary tract infection, follow-up urine culture Recent history of section about 7 days prior to hospitalization History of preeclampsia during Hypertension Plan: This is a pleasant 31 years old female who presents with pulmonary edema, possible UTI and the recent delivery. 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 Check echocardiogram Pulmonary consult Labs and medication were reviewed.. Continue same treatment. Continue with sy mptomatic treatment. Resume home medication. Monitor lytes and vitals. DVT and GI prophylaxis. Further recommendations as per clinical course of the patient DVT prophylaxis: Subcutaneous heparin GI Prophylaxis: Pepcid PT/OT: Pending Prognosis is guarded
--- NOTE | 2021-10-03 11:01 | CA ---
Transthoracic Echo Report Name: Lara Machuca Age: 31 Gender: F : 1990 Exam Date: 10/03/2021 09:56 Exam Location: [facility] Ht (in): 66 Wt (lb): 255 Ordering Physician: Seble Carlos Attending/Referring Phys: [id number], Breanna Toe Pounder Abby Hardy, MANDA Procedure CPT: Indications: LV function Cardiac Hx: Technical Quality: Good Contrast 1: Total Dose (mL): Contrast 2: Total Dose (mL): MEASUREMENTS (Male / Female) Normal Values 2D ECHO LV Diastolic Diameter PLAX 5.4 cm 4.2 - 5.9 / 3.9 - 5.3 cm LV Systolic Diameter PLAX 3.6 cm IVS Diastolic Thickness 1.3 cm 0.6 - 1.0 / 0.6 - 0.9 cm LVPW Diastolic Thickness 1.2 cm 0.6 - 1.0 / 0.6 - 0.9 cm LV Relative Wall Thickness 0.5 RV Internal Dim ED PLAX 3.2 cm LA Systolic Diameter LX 4.2 cm 3.0 - 4.0 / 2.7 - 3.8 cm LA Volume 72.7 cm??? 18 - 58 / 22 - 52 cm??? M-MODE Aortic Root Diameter MM 3.0 cm MV E Point Septal Separation 0.5 cm AV Cusp Separation MM 2.2 cm DOPPLER AV Peak Velocity 175.2 cm/s AV Peak Gradient 12.3 mmHg MV Area PHT 3.2 cm??? Mitral E Point Velocity 137.9 cm/s Mitral A Point Velocity 90.8 cm/s Mitral E to A Ratio 1.5 MV Deceleration Time 235.0 ms MV E' Velocity 9.2 cm/s Mitral E to MV E' Ratio 15.0 TR Peak Velocity 301.1 cm/s TR Peak Gradient 36.3 mmHg Right Ventricular Systolic Press 41.3 mmHg FINDINGS Left Ventricle Left ventricular ejection fraction is estimated at 60-65 %. Moderately increased septal wall thickness. Mildly increased posterior wall thickness. Mild left ventricular dilatation. Right Ventricle Normal right ventricular size and function. Mild pulmonary hypertension. Right Atrium Normal right atrial size. Left Atrium Mildly increased left atrial diameter. Moderately increased left atrial volume. Mildly increased left atrial area. No evidence for an atrial septal defect. Mitral Valve Structurally normal mitral valve. Moderate mitral regurgitation. Aortic Valve Trileaflet aortic valve. No aortic valve stenosis or regurgitation. Tricuspid Valve Mild tricuspid regurgitation. Pulmonic Valve Trace pulmonic regurgitation. Pericardium Normal pericardium. No pericardial effusion. Aorta Normal size aortic root and proximal ascending aorta. CONCLUSIONS Normal left ventricular dimension and systolic function Moderate mitral regurgitation Previewed by: Dr. Suman Reinoso MD (Electronically Signed) Final Date: 03 October 2021 11:00
[2021-10-03] MEDS: FUROSEMIDE 10 MG/ML 4 ML VIAL IV SCH ×3 (11:22→23:44)
--- NOTE | 2021-10-03 11:23 | P.PN ---
Subjective Progress Note Date: 10/03/21 HISTORY OF PRESENT ILLNESS: This is a 31-year-old female with no significant past medical history. Patient does not follow with a senior medical writer. We have been asked to see the patient in consultation for pulmonary edema. Patient examined at the bedside. Patient reports that she had a on September 25 at [facility]. She states that she was 37 weeks at the time of delivery. She reports she had elevated blood pressures at that time. She reports she went to see her OBGYN two days ago to have her raven removed and she mentioned to the doctor she was having some lower extremity swelling and SOB. Patient was prescribed a diuretic however she had not made it to the pharmacy yet to pick it up. The patient reports she began having increased shortness of breath and came to the hospital for further evaluation. The patient received a one-time dose of IV Lasix in the emergency room. The patient states her shortness of breath has significantly improved. The patient was found to be anemic with hemoglobin in the sevens. The patient does report a history of anemia. Patient's blood pressure is stable with a reading of 129/84. * EKG reveals sinus mechanism no signs of acute ischemia * Chest xray there is pulmonary interstitial edema which appears new compared to old exam and could be acute interstitial pneumonia. * Chest CT: No evidence of PE. There is some patchy bilateral upper and lower lobe groundglass interstitial pulmonary infiltrates. Small bilateral pleural effusions. * Laboratory data: WBC 8.0. Hemoglobin 7.7. Platelet count 414. D-dimer 4.84. Sodium 138. Potassium 3.6. BUN 9. Creatinine 0.78. Troponin negative 1. ProBNP 1780. * Current home cardiac medications include none REVIEW OF SYSTEMS: At the time of my exam: CONSTITUTIONAL: Denies fever or chills. HEENT: Denies blurred vision, vision changes, or eye pain. Denies hemoptysis CARDIOVASCULAR: Denies chest pain. Denies orthopnea. Denies PND. Denies palpitations RESPIRATORY: Denies shortness of breath. GASTROINTESTINAL: Denies abdominal pain. Denies nausea or vomiting. HEMATOLOGIC: Denies bleeding disorders. GENITOURINARY: Denies any blood in urine. SKIN: Denies pruitis. Denies rash. PHYSICAL EXAM: VITAL SIGNS: Reviewed. GENERAL: Well-developed in no acute distress. HEENT: Head is normocephalic. Pupils are equal, round. Sclerae anicteric. Mucous membranes of the mouth are moist. Neck supple. No JVD or thyromegaly LUNGS: Respirations even and unlabored. Lungs diminished to auscultation bilaterally. HEART: Regular rate and rhythm. S1 and S2 heard. ABDOMEN: Soft. Nondistended. Nontender. EXTREMITIES: Normal range of motion. No clubbing or cyanosis. Peripheral pulses intact. 2+ nonpitting lower extremity edema NEUROLOGIC: Awake and alert. Oriented x 3. ASSESSMENT: Shortness of breath Acute pulmonary edema Recent , September 25 at [facility] Hypertension History of preeclampsia Elevated d-dimer, CTA negative for PE Anemia PLAN: Obtain 2D echo to assess cardiac structure and function Patient has been started on Lasix. Monitor kidney function, daily weights, accurate I&O Monitor blood pressure Further recommendations pending patient course Nurse practitioner note has been reviewed by physician. Signing provider agrees with the documented findings, assessment, and plan of care. Objective - Vital Signs Vital signs: Vital Signs Temp 98.0 F 10/03/21 08:16 Pulse 91 10/03/21 08:22 Resp 18 10/03/21 08:16 BP 129/84 10/03/21 08:16 Pulse Ox 100 10/03/21 08:16 FiO2 Intake & Output 10/02/21 10/03/21 10/03/21 18:59 06:59 18:59 Intake Total 458.333 0 Output Total 4050 400 Balance -3591.667 -400 Weight 116.1 kg Intake: Intake, IV Titration 458.333 Amount Magnesium Sulfate-Water 458.333 Pmx 20 gm In Water For Injection 1 500ml.bag @ 2 GM/HR 50 mls/hr IV .Q10H [facility] Rx#:[id number] Oral 0 Output: Urine 4050 400 Other: Voiding Method Bedside Commode - Labs CBC & Chem 7: 10/03/21 07:13 10/03/21 07:13 Labs: Abnormal Lab Results - Last 24 Hours (Table) 10/02/21 10/02/21 10/02/21 Range/Units 20:26 20:26 20:26 RBC 2.69 L (3.80-5.40) m/uL Hgb 7.2 L (11.4-16.0) gm/dL Hct 22.8 L (34.0-46.0) % D-Dimer 4.84 H (<0.60) mg/L FEU Carbon Dioxide 20 L (22-30) mmol/L Glucose (74-99) mg/dL Calcium (8.4-10.2) mg/dL Lactate Dehydrogenase 743 H (313-618) U/L Total Protein 5.8 L (6.3-8.2) g/dL Albumin 3.0 L (3.5-5.0) g/dL Urine Appearance (Clear) Urine Protein (Negative) Urine Blood (Negative) Ur Leukocyte Esterase (Negative) Urine RBC (0-5) /hpf Urine WBC (0-5) /hpf Urine Bacteria (None) /hpf Urine Mucus (None) /hpf 10/02/21 10/03/21 10/03/21 Range/Units 22:07 07:13 07:13 RBC 2.83 L (3.80-5.40) m/uL Hgb 7.7 L (11.4-16.0) gm/dL Hct 24.1 L (34.0-46.0) % D-Dimer (<0.60) mg/L FEU Carbon Dioxide (22-30) mmol/L Glucose 130 H (74-99) mg/dL Calcium 7.9 L (8.4-10.2) mg/dL Lactate Dehydrogenase (313-618) U/L Total Protein (6.3-8.2) g/dL Albumin (3.5-5.0) g/dL Urine Appearance Cloudy H (Clear) Urine Protein 1+ H (Negative) Urine Blood Large H (Negative) Ur Leukocyte Esterase Large H (Negative) Urine RBC >182 H (0-5) /hpf Urine WBC 111 H (0-5) /hpf Urine Bacteria Rare H (None) /hpf Urine Mucus Rare H (None) /hpf Microbiology - Last 24 Hours (Table) 10/02/21 22:07 Urine Culture - Preliminary Urine,Voided
--- NOTE | 2021-10-03 11:24 | P.CRDCN ---
History of Present Illness History of present illness: HISTORY OF PRESENT ILLNESS: This is a 31-year-old female with no significant past medical history. Patient does not follow with a bi technical lead. We have been asked to see the patient in consultation for pulmonary edema. Patient examined at the bedside. Patient reports that she had a on September 25 at [facility]. She states that she was 37 weeks at the time of delivery. She reports she had elevated blood pressures at that time. She reports she went to see her OBGYN two days ago to have her raven removed and she mentioned to the doctor she was having some lower extremity swelling and SOB. Patient was prescribed a diuretic however she had not made it to the pharmacy yet to pick it up. The patient reports she began having increased shortness of breath and came to the hospital for further evaluation. The patient received a one-time dose of IV Lasix in the emergency room. The patient states her shortness of breath has significantly improved. The patient was found to be anemic with hemoglobin in the sevens. The patient does report a history of anemia. Patient's blood pressure is stable with a reading of 129/84. * EKG reveals sinus mechanism no signs of acute ischemia * Chest xray there is pulmonary interstitial edema which appears new compared to old exam and could be acute interstitial pneumonia. * Chest CT: No evidence of PE. There is some patchy bilateral upper and lower lobe groundglass interstitial pulmonary infiltrates. Small bilateral pleural effusions. * Laboratory data: WBC 8.0. Hemoglobin 7.7. Platelet count 414. D-dimer 4.84. Sodium 138. Potassium 3.6. BUN 9. Creatinine 0.78. Troponin negative 1. ProBNP 1780. * Current home cardiac medications include none REVIEW OF SYSTEMS: At the time of my exam: CONSTITUTIONAL: Denies fever or chills. HEENT: Denies blurred vision, vision changes, or eye pain. Denies hemoptysis CARDIOVASCULAR: Denies chest pain. Denies orthopnea. Denies PND. Denies palpitations RESPIRATORY: Denies shortness of breath. GASTROINTESTINAL: Denies abdominal pain. Denies nausea or vomiting. HEMATOLOGIC: Denies bleeding disorders. GENITOURINARY: Denies any blood in urine. SKIN: Denies pruitis. Denies rash. PHYSICAL EXAM: VITAL SIGNS: Reviewed. GENERAL: Well-developed in no acute distress. HEENT: Head is normocephalic. Pupils are equal, round. Sclerae anicteric. Mucous membranes of the mouth are moist. Neck supple. No JVD or thyromegaly LUNGS: Respirations even and unlabored. Lungs diminished to auscultation bilaterally. HEART: Regular rate and rhythm. S1 and S2 heard. ABDOMEN: Soft. Nondistended. Nontender. EXTREMITIES: Normal range of motion. No clubbing or cyanosis. Peripheral pulses intact. 2+ nonpitting lower extremity edema NEUROLOGIC: Awake and alert. Oriented x 3. ASSESSMENT: Shortness of breath Acute pulmonary edema Recent , September 25 at [facility] Hypertension History of preeclampsia Elevated d-dimer, CTA negative for PE Anemia PLAN: Obtain 2D echo to assess cardiac structure and function Patient has been started on Lasix. Monitor kidney function, daily weights, accurate I&O Monitor blood pressure Further recommendations pending patient course Nurse practitioner note has been reviewed by physician. Signing provider agrees with the documented findings, assessment, and plan of care. Past Medical History Past Medical History: No Reported History History of Any Multi-Drug Resistant Organisms: None Reported Past Surgical History: Section, Tonsillectomy Additional Past Surgical History / Comment(s): C section x3 Past Anesthesia/Blood Transfusion Reactions: No Reported Reaction Past Psychological History: No Psychological Hx Reported Smoking Status: Vaper Past Alcohol Use History: None Reported Past Drug Use History: None Reported Medications and Allergies Home Medications Medication Instructions Recorded Confirmed Type No Known Home Medications 10/02/21 10/02/21 History Allergies Allergy/AdvReac Type Severity Reaction Status Date / Time Sulfa (Sulfonamide Allergy Rash/Hives Verified 10/02/21 23:06 Antibiotics) Physical Exam Vitals: Vital Signs Temp Pulse Pulse Resp BP BP Pulse Ox 10/03/21 09:10 18 94 L 10/03/21 08:22 91 10/03/21 08:16 98.0 F 78 18 129/84 100 10/03/21 08:07 89 100 10/03/21 05:56 84 17 130/83 100 10/03/21 03:36 97.7 F 80 17 146/91 95 10/03/21 03:00 95 10/03/21 02:47 88 10/03/21 01:55 97 10/03/21 01:49 97.6 F 86 26 H 156/98 85 L 10/02/21 23:39 78 14 133/80 93 L 10/02/21 22:41 26 H 10/02/21 22:37 79 24 141/89 96 10/02/21 22:07 24 143/86 95 10/02/21 21:21 79 24 152/95 95 10/02/21 20:40 86 20 140/89 96 10/02/21 19:57 98.0 F 91 24 162/102 91 L Intake and Output 10/02/21 10/03/21 10/03/21 22:59 06:59 14:59 Intake Total 458.333 0 Output Total 4050 400 Balance -3591.667 -400 Intake: Intake, IV Titration 458.333 Amount Magnesium Sulfate-Water 458.333 Pmx 20 gm In Water For Injection 1 500ml.bag @ 2 GM/HR 50 mls/hr IV .Q10H [facility] Rx#:[id number] Oral 0 Output: Urine 4050 400 Other: Voiding Method Bedside Commode Weight 117.934 kg 116.1 kg Results 10/03/21 07:13 10/03/21 07:13 Cardiac Enzymes 10/02/21 10/02/21 Range/Units 20:26 20:26 AST 26 (14-36) U/L Lactate Dehydrogenase 743 H (313-618) U/L Troponin I <0.012 (0.000-0.034) ng/mL Coagulation 10/02/21 Range/Units 20:26 PT 10.2 (9.0-12.0) sec CBC 10/02/21 10/03/21 Range/Units 20:26 07:13 WBC 6.8 8.0 (3.8-10.6) k/uL RBC 2.69 L 2.83 L (3.80-5.40) m/uL Hgb 7.2 L 7.7 L (11.4-16.0) gm/dL Hct 22.8 L 24.1 L (34.0-46.0) % Plt Count 398 414 (150-450) k/uL Comprehensive Metabolic Panel 10/02/21 10/03/21 Range/Units 20:26 07:13 Sodium 138 138 (137-145) mmol/L Potassium 3.8 3.6 (3.5-5.1) mmol/L Chloride 107 101 (98-107) mmol/L Carbon Dioxide 20 L 23 (22-30) mmol/L BUN 11 9 (7-17) mg/dL Creatinine 0.70 0.78 (0.52-1.04) mg/dL Glucose 80 130 H (74-99) mg/dL Calcium 8.6 7.9 L (8.4-10.2) mg/dL AST 26 (14-36) U/L ALT 20 (4-34) U/L Alkaline Phosphatase 80 (38-126) U/L Total Protein 5.8 L (6.3-8.2) g/dL Albumin 3.0 L (3.5-5.0) g/dL Current Medications Generic Name Dose Route Start Last Admin Trade Name Freq PRN Reason Stop Dose Admin Acetaminophen 650 mg 10/03/21 02:31 10/03/21 02:44 Acetaminophen Tab 325 Mg Tab PO 650 mg Q6HR PRN Administration Fever and/ or Pain Albuterol/Ipratropium 3 ml 10/03/21 02:31 10/03/21 08:06 Ipratropium-Albuterol 3 Ml Neb INHALATION 3 ml RT-Q4H PRN Administration Wheezing Furosemide 40 mg 10/03/21 10:15 10/03/21 11:22 Furosemide 10 Mg/Ml 4 Ml Vial IV Not Given Q8HR [facility] Magnesium Sulfate 20 gm/ IV 500 mls @ 50 mls/hr 10/02/21 20:15 10/03/21 05:45 Solution IV 2 gm/hr .Q10H [facility] 50 mls/hr Administration 2 GM/HR Labetalol HCl 20 mg 10/03/21 00:47 Labetalol 5 Mg/Ml Vial Mdv IVP ONCE PRN Blood Pressure - High Naloxone HCl 0.2 mg 10/02/21 23:16 Naloxone 0.4 Mg/Ml 1 Ml Vial IV Q2M PRN Opioid Reversal Intake and Output 10/02/21 10/03/21 10/03/21 22:59 06:59 14:59 Intake Total 458.333 0 Output Total 4050 400 Balance -3591.667 -400 Intake: Intake, IV Titration 458.333 Amount Magnesium Sulfate-Water 458.333 Pmx 20 gm In Water For Injection 1 500ml.bag @ 2 GM/HR 50 mls/hr IV .Q10H [facility] Rx#:[id number] Oral 0 Output: Urine 4050 400 Other: Voiding Method Bedside Commode Weight 117.934 kg 116.1 kg 10/03/21 07:13 10/03/21 07:13
[2021-10-03 12:32] LABS: Appearance,Urine Clear (Clear); Bilirubin,Urine Negative (Negative); Blood,Urine Negative (Negative); Color,Urine Colorless; Glucose,Urine (UA) Negative (Negative); Ketones,Urine Negative (Negative); Leukocyte Esterase,Urine Negative (Negative); Nitrite,Urine Negative (Negative); Protein,Urine Negative (Negative); Specific Gravity,Urine 1.005 (1.001-1.035); Urobilinogen,Urine <2.0 mg/dL (<2.0)
--- NOTE | 2021-10-03 12:51 | P.CNPUL ---
History of Present Illness Consult date: 10/03/21 Requesting physician: Timothy Stratton Reason for consult: dyspnea Chief complaint: Dyspnea, hypoxia History of present illness: This is a 31-year-old female patient who is status post repeat section on 09/25/[address] Terry at the [facility] at 37 weeks gestation because she had elevated blood pressures. Patient saw Dr. Terry on Friday, October 01, 2021 in follow-up, and was noted to have increased shortness of breath and peripheral edema, and Dr. Terry was going to start the patient on oral diuretics. However patient became acutely short of breath overnight Friday night and came into the emergency department on Friday for further evaluation and treatment. Chest x-ray on admission showed pulmonary edema. CT angiogram of the chest showed no evidence of pulmonary embolism, it did show some patchy bilateral upper and lower lobe groundglass interstitial pulmonary infiltrate and small bilateral pleural effusions. EKG shows sinus rhythm without acute ischemi c changes. Laboratory data shows white blood cell count of 8.0, hemoglobin of 7.7, d-dimer of 4.84, troponin was negative 1, proBNP was 1780, BUN was 11, creatinine 0.70, LDH was 743, urinalysis showed large amount of leuks, white blood cells, rare bacteria suggestive of urinary tract infection, COVID-19 PCR and influenza A and B were negative. Echocardiogram has been completed and results are pending, patient was given a dose of IV Lasix, she currently remains on high flow oxygen at 7 L/min, which is down from 12 L. Still has quite significant amount of lower extremity edema. She is receiving IV magnesium sulfate, blood pressure is better controlled and is currently at 136/83. Denies any complaints of chest discomfort. Review of Systems All systems: negative Constitutional: Denies chills, Denies fever Eyes: denies blurred vision, denies pain Ears, nose, mouth and throat: Denies headache, Denies sore throat Cardiovascular: Denies chest pain, Denies shortness of breath Respiratory: Reports dyspnea, Denies cough Gastrointestinal: Denies abdominal pain, Denies diarrhea, Denies nausea, Denies vomiting Genitourinary: Denies dysuria, Denies hematuria Musculoskeletal: Denies myalgias Integumentary: Denies pruritus, Denies rash Neurological: Denies numbness, Denies weakness Psychiatric: Denies anxiety, Denies depression Endocrine: Denies fatigue, Denies weight change Past Medical History Past Medical History: No Reported History History of Any Multi-Drug Resistant Organisms: None Reported Past Surgical History: Section, Tonsillectomy Additional Past Surgical History / Comment(s): C section x3 Past Anesthesia/Blood Transfusion Reactions: No Reported Reaction Past Psychological History: No Psychological Hx Reported Smoking Status: Vaper Past Alcohol Use History: None Reported Past Drug Use History: None Reported Medications and Allergies Home Medications Medication Instructions Recorded Confirmed Type No Known Home Medications 10/02/21 10/02/21 History Allergies Allergy/AdvReac Type Severity Reaction Status Date / Time Sulfa (Sulfonamide Allergy Rash/Hives Verified 10/02/21 23:06 Antibiotics) Physical Exam Vitals: Vital Signs Temp Pulse Pulse Resp BP BP Pulse Ox 10/03/21 12:12 88 10/03/21 11:51 84 10/03/21 11:29 76 18 136/83 96 10/03/21 09:10 18 94 L 10/03/21 08:22 91 10/03/21 08:16 98.0 F 78 18 129/84 100 10/03/21 08:07 89 100 10/03/21 05:56 84 17 130/83 100 10/03/21 03:36 97.7 F 80 17 146/91 95 10/03/21 03:00 95 10/03/21 02:47 88 10/03/21 01:55 97 10/03/21 01:49 97.6 F 86 26 H 156/98 85 L 10/02/21 23:39 78 14 133/80 93 L 10/02/21 22:41 26 H 10/02/21 22:37 79 24 141/89 96 10/02/21 22:07 24 143/86 95 10/02/21 21:21 79 24 152/95 95 10/02/21 20:40 86 20 140/89 96 10/02/21 19:57 98.0 F 91 24 162/102 91 L Intake and Output 10/02/21 10/03/21 10/03/21 22:59 06:59 14:59 Intake Total 458.333 0 Output Total 4050 800 Balance -3591.667 -800 Intake: Intake, IV Titration 458.333 Amount Magnesium Sulfate-Water 458.333 Pmx 20 gm In Water For Injection 1 500ml.bag @ 2 GM/HR 50 mls/hr IV .Q10H [facility] Rx#:[id number] Oral 0 Output: Urine 4050 800 Other: Voiding Method Bedside Commode Bedside Commode Weight 117.934 kg 116.1 kg GENERAL EXAM: Alert, very pleasant, 31-year-old white female, resting in bed, on 7 L of oxygen pulse ox is 96% comfortable in no apparent distress. HEAD: Normocephalic/atraumatic. EYES: Normal reaction of pupils, equal size. Conjunctiva pink, sclera white. NOSE: Clear with pink turbinates. THROAT: No erythema or exudates. NECK: No masses, no JVD, no thyroid enlargement, no adenopathy. CHEST: No chest wall deformity. Symmetrical expansion. LUNGS: Equal air entry with no crackles, wheeze, rhonchi or dullness. CVS: Regular rate and rhythm, normal S1 and S2, no gallops, no murmurs, no rubs ABDOMEN: Soft, nontender. No hepatosplenomegaly, normal bowel sounds, no guardi ng or rigidity. EXTREMITIES: No clubbing, 1+ bilateral lower extremity edema no cyanosis, 2+ pulses and upper and lower extremities. MUSCULOSKELETAL: Muscle strength and tone normal. SPINE: No scoliosis or deformity SKIN: No rashes CENTRAL NERVOUS SYSTEM: Alert and oriented -3. No focal deficits, tone is normal in all 4 extremities. PSYCHIATRIC: Alert and oriented -3. Appropriate affect. Intact judgment and insight. Results - Laboratory Findings CBC and BMP: 10/03/21 07:13 10/03/21 07:13 PT/INR, D-dimer PT 10.2 sec (9.0-12.0) 10/02/21 20:26 INR 0.9 (<1.2) 10/02/21 20:26 D-Dimer 4.84 mg/L FEU (<0.60) H 10/02/21 20:26 Abnormal lab findings: Abnormal Labs 10/02/21 10/02/21 10/02/21 20:26 20:26 20:26 RBC 2.69 L Hgb 7.2 L Hct 22.8 L D-Dimer 4.84 H Carbon Dioxide 20 L Glucose Calcium Lactate Dehydrogenase 743 H Total Protein 5.8 L Albumin 3.0 L Urine Appearance Urine Protein Urine Blood Ur Leukocyte Esterase Urine RBC Urine WBC Urine Bacteria Urine Mucus 10/02/21 10/03/21 10/03/21 22:07 07:13 07:13 RBC 2.83 L Hgb 7.7 L Hct 24.1 L D-Dimer Carbon Dioxide Glucose 130 H Calcium 7.9 L Lactate Dehydrogenase Total Protein Albumin Urine Appearance Cloudy H Urine Protein 1+ H Urine Blood Large H Ur Leukocyte Esterase Large H Urine RBC >182 H Urine WBC 111 H Urine Bacteria Rare H Urine Mucus Rare H - Diagnostic Findings Chest x-ray: report reviewed, image reviewed CT scan - chest: report reviewed, image reviewed Assessment and Plan Plan: Assessment: #1. Acute hypoxic respiratory failure, related to acute diastolic CHF, echocardiogram showed preserved LV function. #2. Pulmonary edema related to the above #3. Possible preeclampsia, patient continues on magnesium sulfate #4. Recent history of repeat section with tubal ligation at an outside facility on September [id number] at 37 weeks gestation #5. History of the pain #6. History of 3 Plan: Patient remains on high flow oxygen although reports some improvement with diuresis We will continue the patient on IV Lasix of 40 mg every 8 hours Echocardiogram has been reviewed Patient continues on magnesium sulfate Follow-up chest x-ray and labs tomorrow Daily weights and accurate intake and output We'll continue to follow and make further recommendations I have personally seen and examined the patient, performed the documentation and the assessment and plan as written. Number of minutes spent on the visit: [15] Time with Patient: Greater than 30
[2021-10-04 08:05] LABS: Basophils % (A) 0 %; Eosinophils # (A) 0.1 k/uL (0-0.7); Eosinophils % (A) 1 %; HCT 25.5 % (34.0-46.0); HGB 8.2 gm/dL (11.4-16.0); Hypochromasia Slight; Lymphocytes # (A) 1.5 k/uL (1.0-4.8); Lymphocytes % (A) 23 %; MCH 27.1 pg (25.0-35.0); MCHC 32.2 g/dL (31.0-37.0); MCV 84.4 fL (80.0-100.0); Mean Platelet Volume 7.3; Monocytes # (A) 0.4 k/uL (0-1.0); Monocytes % (A) 6 %; Neutrophils # (A) 4.4 k/uL (1.3-7.7); Neutrophils % (A) 68 %; Platelet Count 453 k/uL (150-450); Poikilocytosis Slight; RBC 3.02 m/uL (3.80-5.40); RDW 13.9 % (11.5-15.5); WBC 6.5 k/uL (3.8-10.6)
[2021-10-04] MEDS ORDERED: IBUPROFEN 600 MG TAB PO PRN (08:12)
[2021-10-04] MEDS ORDERED: HYDROcodone/APAP 7.5-325MG 1 EACH TAB PO PRN (08:12)
[2021-10-04] MEDS: IPRATROPIUM-ALBUTEROL 3 ML NEB INHALATION PRN ×3 (08:16→16:23)
--- NOTE | 2021-10-04 08:17 | P.PNOBGPC ---
Subjective - Subjective Principal diagnosis: Status post postop day #9 Interval history: Patient seen and examined. She is feeling better than yesterday but her chest felt pretty tight and she is using oxygen on nasal cannula. Magnesium sulfate came off last night she is feeling more clearheaded. Her swelling has gone down some. She denies headache, nausea, vomiting, chest pain, shortness of breath or calf pain or vision changes. Of note, I did see the baby in the bassinet with a thick blanket underneath the baby and little blanket on top of the baby. It did take the time to educate the mother about safe sleep and at this is not appropriate. Patient reports: Reports appetite normal, Reports voiding normally, Reports pain well controlled, Reports ambulating normally : doing well Objective - Vital Signs Latest vital signs: Vital Signs Temp Pulse Pulse Resp BP Pulse Ox 10/04/21 06:38 95 10/04/21 04:00 98.0 F 81 12 143/92 97 10/04/21 00:51 94 L 10/04/21 00:00 98.0 F 77 16 137/75 94 L 10/03/21 20:00 98.0 F 77 16 144/91 99 10/03/21 16:21 98.4 F 91 18 131/76 97 10/03/21 15:51 90 10/03/21 15:41 83 98 10/03/21 12:12 88 10/03/21 11:51 84 10/03/21 11:29 76 18 136/83 96 10/03/21 09:10 18 94 L 10/03/21 08:22 91 10/03/21 08:16 98.0 F 78 18 129/84 100 Intake and Output 10/03/21 10/04/21 10/04/21 22:59 06:59 14:59 Intake Total 1126.667 Output Total 1700 1250 Balance -573.333 -1250 Intake: Intake, IV Titration 626.667 Amount Magnesium Sulfate-Water 626.667 Pmx 20 gm In Water For Injection 1 500ml.bag @ 2 GM/HR 50 mls/hr IV .Q10H [facility] Rx#:[id number] Oral 500 Output: Urine 1700 1250 Other: Voiding Method Bedside Commode Bedside Commode Weight 111.6 kg - Exam Chest: Normal S1, Normal S2 Extremities: Present: normal Abdomen: Present: normal appearance, soft. Absent: distention, tenderness Incision: Present: normal, dry, intact Uterus: Present: normal, firm - Labs Labs: Abnormal Lab Results - Last 24 Hours (Table) 10/04/21 Range/Units 07:43 RBC 3.02 L (3.80-5.40) m/uL Hgb 8.2 L (11.4-16.0) gm/dL Hct 25.5 L (34.0-46.0) % Plt Count 453 H (150-450) k/uL Assessment and Plan (1) Preeclampsia Current Visit: Yes Status: Acute Code(s): O14.90 - UNSPECIFIED PRE- ECLAMPSIA, UNSPECIFIED TRIMESTER SNOMED Code(s): 011451701 (2) Anemia Current Visit: Yes Status: Acute Code(s): D64.9 - ANEMIA, UNSPECIFIED SNOMED Code(s): 519394017 (3) Acute pulmonary edema Current Visit: Yes Status: Acute Code(s): J81.0 - ACUTE PULMONARY EDEMA SNOMED Code(s): 38515966 (4) Status post repeat low transverse section Current Visit: Yes Status: Acute Code(s): Z98.891 - HISTORY OF UTERINE SCAR FROM PREVIOUS SURGERY SNOMED Code(s): 899624348 Plan: 1. Continue to monitor blood pressures closely 2. Incentive spirometry to bedside 3. [place] and Motrin have been added to her med list for pain control after her 4. Regular diet 5. Seizure precautions
[2021-10-04 08:44] LABS: ALT 19 U/L (4-34); AST 23 U/L (14-36); African American GFR (CKD) >90 (>60 ml/min/1.73 sqM); Albumin 3.3 g/dL (3.5-5.0); Alkaline Phosphatase 92 U/L (38-126); Anion Gap 11 mmol/L; Bilirubin, Delta 0.1 mg/dL (0.0-0.2); Bilirubin,Unconjugated 0.4 mg/dL (0.0-1.1); Blood Urea Nitrogen 12 mg/dL (7-17); Calcium 7.8 mg/dL (8.4-10.2); Carbon Dioxide 27 mmol/L (22-30); Chloride 98 mmol/L (98-107); Glucose 92 mg/dL (74-99); Non-African American GFR(CKD) >90 (>60 ml/min/1.73 sqM); Potassium 3.6 mmol/L (3.5-5.1); Sodium 136 mmol/L (137-145); Total Bilirubin 0.5 mg/dL (0.2-1.3); Total Protein 6.2 g/dL (6.3-8.2)
[2021-10-04] MEDS: FUROSEMIDE 10 MG/ML 4 ML VIAL IV SCH (08:57)
--- NOTE | 2021-10-04 09:21 | XR ---
EXAMINATION TYPE: XR chest 1V portable DATE OF EXAM: 10/04/2021 COMPARISON: 10/02/2021 HISTORY: Shortness of breath TECHNIQUE: Single frontal view of the chest is obtained. FINDINGS: Patchy bilateral diffuse infiltrates stable. No pleural effusion or pneumothorax. Heart si ze stable. Osseous structures intact. IMPRESSION: Patchy bilateral infiltrates are stable correlate for pneumonitis or pneumonia.
[2021-10-04 12:16] VITALS: TEMP 98.3
--- NOTE | 2021-10-04 12:30 | P.PN ---
Subjective Progress Note Date: 10/04/21 HISTORY OF PRESENT ILLNESS: This is a 31-year-old female with no significant past medical history. Patient does not follow with a crimper assembler. We have been asked to see the patient in consultation for pulmonary edema. Patient examined at the bedside. Patient reports that she had a on September 25 at [facility]. She states that she was 37 weeks at the time of delivery. She reports she had elevated blood pressures at that time. She reports she went to see her OBGYN two days ago to have her raven removed and she mentioned to the doctor she was having some lower extremity swelling and SOB. Patient was prescribed a diuretic however she had not made it to the pharmacy yet to pick it up. The patient reports she began having increased shortness of breath and came to the hospital for further evaluation. The patient received a one-time dose of IV Lasix in the emergency room. The patient states her shortness of breath has significantly improved. The patient was found to be anemic with hemoglobin in the sevens. The patient does report a history of anemia. Patient's blood pressure is stable with a reading of 129/84. * EKG reveals sinus mechanism no signs of acute ischemia * Chest xray there is pulmonary interstitial edema which appears new compared to old exam and could be acute interstitial pneumonia. * Chest CT: No evidence of PE. There is some patchy bilateral upper and lower lobe groundglass interstitial pulmonary infiltrates. Small bilateral pleural effusions. * Laboratory data: WBC 8.0. Hemoglobin 7.7. Platelet count 414. D-dimer 4.84. Sodium 138. Potassium 3.6. BUN 9. Creatinine 0.78. Troponin negative 1. ProBNP 1780. * Current home cardiac medications include none 10/04/2021 Patient examined this morning at the bedside. Patient denies chest pain or pressure. She currently denies shortness of breath. She reports improvement in her lower extremity edema. She remains on oxygen therapy. Per nursing, patients oxygen saturation was in the 70s overnight when she was on room air. She remains on IV Lasix. Echocardiogram completed revealing ejection fraction 6065% with moderate MR. Nursing reports patient has been having some hematuria today. PHYSICAL EXAM: VITAL SIGNS: Reviewed. GENERAL: Well-developed in no acute distress. HEENT: Head is normocephalic. Pupils are equal, round. Sclerae anicteric. Mucous membranes of the mouth are moist. Neck supple. No JVD or thyromegaly LUNGS: Respirations even and unlabored. Lungs diminished to auscultation bilaterally. HEART: Regular rate and rhythm. S1 and S2 heard. ABDOMEN: Soft. Nondistended. Nontender. EXTREMITIES: Normal range of motion. No clubbing or cyanosis. Peripheral pulses intact. 1+ nonpitting lower extremity edema NEUROLOGIC: Awake and alert. Oriented x 3. ASSESSMENT: Shortness of breath Acute pulmonary edema Recent , September 25 at [facility] Hypertension History of preeclampsia Elevated d-dimer, CTA negative for PE Anemia Hematuria PLAN: Continue IV Lasix. Dose has been decreased to every 12 hours per pulmonary Monitor kidney function, daily weights, accurate I&O Monitor blood pressure Wean oxygen as tolerated Further recommendations pending patient course Nurse practitioner note has been reviewed by physician. Signing provider agrees with the documented findings, assessment, and plan of care. Objective - Vital Signs Vital signs: Vital Signs Temp 98.3 F 10/04/21 12:15 Pulse 76 10/04/21 11:37 Resp 18 10/04/21 12:15 BP 125/75 10/04/21 12:15 Pulse Ox 92 L 10/04/21 12:15 FiO2 Intake & Output 10/03/21 10/04/21 10/04/21 18:59 06:59 18:59 Intake Total 700 626.667 0 Output Total 2700 1650 300 Balance -1999 -1023.333 -300 Weight 111.6 kg Intake: Intake, IV Titration 500 126.667 Amount Magnesium Sulfate-Water 500 126.667 Pmx 20 gm In Water For Injection 1 500ml.bag @ 2 GM/HR 50 mls/hr IV .Q10H [facility] Rx#:[id number] Oral 200 500 0 Output: Urine 2700 1650 300 Other: Voiding Method Bedside Commode Bedside Commode Bedside Commode # Voids 600 - Labs CBC & Chem 7: 10/04/21 07:43 10/04/21 07:43 Labs: Abnormal Lab Results - Last 24 Hours (Table) 10/04/21 10/04/21 Range/Units 07:43 07:43 RBC 3.02 L (3.80-5.40) m/uL Hgb 8.2 L (11.4-16.0) gm/dL Hct 25.5 L (34.0-46.0) % Plt Count 453 H (150-450) k/uL Sodium 136 L (137-145) mmol/L Calcium 7.8 L (8.4-10.2) mg/dL Magnesium 3.0 H (1.6-2.3) mg/dL Total Protein 6.2 L (6.3-8.2) g/dL Albumin 3.3 L (3.5-5.0) g/dL
--- NOTE | 2021-10-04 15:34 | P.PN ---
Subjective Progress Note Date: 10/04/21 Principal diagnosis: Shortness of breath This is a 31-year-old female patient who is status post repeat section on 09/25/[address] Terry at the [facility] at 37 weeks gestation because she had elevated blood pressures. Patient saw Dr. Terry on Friday, October 01, 2021 in follow-up, and was noted to have increased shortness of breath and peripheral edema, and Dr. Terry was going to start the patient on oral diuretics. However patient became acutely short of breath overnight Friday night and came into the emergency department on Friday for further evaluation and treatment. Chest x-ray on admission showed pulmonary edema. CT angiogram of the chest showed no evidence of pulmonary embolism, it did show some patchy bilateral upper and lower lobe groundglass interstitial pulmonary infiltrate and small bilateral pleural effusions. EKG shows sinus rhythm without acute ischemic changes. Laboratory data shows white blood cell count of 8.0, hemo globin of 7.7, d-dimer of 4.84, troponin was negative 1, proBNP was 1780, BUN was 11, creatinine 0.70, LDH was 743, urinalysis showed large amount of leuks, white blood cells, rare bacteria suggestive of urinary tract infection, COVID-19 PCR and influenza A and B were negative. Echocardiogram has been completed and results are pending, patient was given a dose of IV Lasix, she currently remains on high flow oxygen at 7 L/min, which is down from 12 L. Still has quite significant amount of lower extremity edema. She is receiving IV magnesium sulfate, blood pressure is better controlled and is currently at 136/83. Denies any complaints of chest discomfort. On 10/04/2021 patient is seen in follow-up on selective care unit. She is seen comfortably in bed, she states her breathing has significantly improved, she remains on IV Lasix, her FiO2 requirement is down to 2 L, she sat 94%, no c omplaints of chest pain, blood pressures improved, 129/82. She is in -3023 mL net fluid balance over the last 24 hours, overall net fluid balance has significantly improved and her weight is down 4.5 kg in the last 24 hours. Today's labs have been reviewed. Objective - Vital Signs Vital signs: Vital Signs Temp 98.3 F 10/04/21 12:15 Pulse 76 10/04/21 11:37 Resp 18 10/04/21 12:15 BP 125/75 10/04/21 12:15 Pulse Ox 92 L 10/04/21 12:15 FiO2 Intake & Output 10/03/21 10/04/21 10/04/21 18:59 06:59 18:59 Intake Total 700 626.667 540 Output Total 2700 1650 300 Balance -1999 -1023.333 240 Weight 111.6 kg Intake: Intake, IV Titration 500 126.667 Amount Magnesium Sulfate-Water 500 126.667 Pmx 20 gm In Water For Injection 1 500ml.bag @ 2 GM/HR 50 mls/hr IV .Q10H [facility] Rx#:[id number] Oral 200 500 540 Output: Urine 2700 1650 300 Other: Voiding Method Bedside Commode Bedside Commode Bedside Commode # Voids 600 - Exam GENERAL EXAM: Alert, very pleasant, 31-year-old white female, resting in bed, on 7 L of oxygen pulse ox is 96% comfortable in no apparent distress. HEAD: Normocephalic/atraumatic. EYES: Normal reaction of pupils, equal size. Conjunctiva pink, sclera white. NOSE: Clear with pink turbinates. THROAT: No erythema or exudates. NECK: No masses, no JVD, no thyroid enlargement, no adenopathy. CHEST: No chest wall deformity. Symmetrical expansion. LUNGS: Equal air entry with no crackles, wheeze, rhonchi or dullness. CVS: Regular rate and rhythm, normal S1 and S2, no gallops, no murmurs, no rubs ABDOMEN: Soft, nontender. No hepatosplenomegaly, normal bowel sounds, no guarding or rigidity. EXTREMITIES: No clubbing, 1+ bilateral lower extremity edema no cyanosis, 2+ pulses and upper and lower extremities. MUSCULOSKELETAL: Muscle strength and tone normal. SPINE: No scoliosis or deformity SKIN: No rashes CENTRAL NERVOUS SYSTEM: Alert and oriented -3. No focal deficits, tone is normal in all 4 extremities. PSYCHIATRIC: Alert and oriented -3. Appropriate affect. Intact judgment and insight. - Labs CBC & Chem 7: 10/04/21 07:43 10/04/21 07:43 Labs: Abnormal Lab Results - Last 24 Hours (Table) 10/04/21 10/04/21 Range/Units 07:43 07:43 RBC 3.02 L (3.80-5.40) m/uL Hgb 8.2 L (11.4-16.0) gm/dL Hct 25.5 L (34.0-46.0) % Plt Count 453 H (150-450) k/uL Sodium 136 L (137-145) mmol/L Calcium 7.8 L (8.4-10.2) mg/dL Magnesium 3.0 H (1.6-2.3) mg/dL Total Protein 6.2 L (6.3-8.2) g/dL Albumin 3.3 L (3.5-5.0) g/dL Assessment and Plan Plan: Assessment: #1. Acute hypoxic respiratory failure, related to acute diastolic CHF, echocardiogram showed preserved LV function. #2. Pulmonary edema related to the above #3. Possible preeclampsia, patient continues on magnesium sulfate #4. Recent history of repeat section with tubal ligation at an outside facility on September [id number] at 37 weeks gestation #5. History of anemia #6. History of 3 Plan: Patient is breathing easier FiO2 is down to 2 L Chest x-ray findings showing improvement in the appearance of bilateral infiltrates We will cut back to IV Lasix to twice daily If patient continues to improve we'll consider discharge home in the next 24 hours if cleared by cardiology, PORT SURVEYOR and medicine I have personally seen and examined the patient, performed the documentation and the assessment and plan as written. Number of minutes spent on the visit: [15] Time with Patient: Less than 30
[2021-10-04 17:13] VITALS: BP 129/83; PULSE 92; RESP 16
[2021-10-04] MEDS ORDERED: FUROSEMIDE 10 MG/ML 4 ML VIAL IV SCH (21:00)
--- NOTE | 2021-10-04 23:24 | P.PN ---
Subjective This is a pleasant 31 years old female with no past medical history. Patient states that she does not have PCP and she does not follow up with one. She had surgery about 8 days ago. She presents because of dyspnea of one-day duration associated with dry cough but no chest pain with mild to moderate headache for the last 3 days. She denies any chest pain. No nausea vomiting or diarrhea. No urgency or dysuria however she was starting well up after she received 1 dose of Lasix today. No dizziness or weakness or numbness. She denies smoking, alcohol or illicit drugs. On admission patient is afebrile, she was saturating 91% on room air. Blood pressure 162/102. She is tachypneic about 24/m.. This morning she is less tachypneic, however she is saturating 94% on 7 L oxygen via nasal cannula, they have to go up because her oxygen dropped to 85% on 4 L yesterday. Labs show an unremarkable CBC except for anemia with hemoglobin 7.2. D-dimer is 4.8. BMP is unremarkable. Creatinine 0.7. Liver enzymes not elevated. Lactic dehy drogenase 743. Troponin is negative less than 0.012. ProBNP is 1780. Urine analysis is suspicious for large leukocyte esterase, more than 182 RBC and 111 WBC EKG: Normal sinus rhythm at [address]-T changes. QTC 426. Chest x-ray: There is pulmonary interstitial edema which appears new compared to old exam, it could be also acute interstitial pneumonia CTA of the chest showed no evidence of pulmonary embolism. There is some patchy bilateral upper and lower lobe ground glass interstitial pulmonary infiltrates. Small bilateral pleural effusions In the emergency room patient received Tylenol, ceftriaxone, labetalol. Also she received magnesium sulfate. In the emergency room both cardiology and UI APPLICATION DEVELOPER's team's was consulted 10/04/2021 Patient today was seen in the standing at bedside, stating improvement in her breathing and denied any chest pain or abdominal pain. The morning she was still saturation on 3 L/m of oxygen. Which is improvement compared to yesterday. Patient still have some dyspnea and cough but no chest pain. Lab slip stable. Hemoglobin 8.2, platelet count increased 453. Sodium slightly low at 136, creatinine normal 0.7. Patient remains on IV Lasix twice daily, as recommended by front desk and other consultants. Chest x-ray showed patchy bilateral infiltrates are stable, correlate for pneumonia or pneumonitis per radiologist. Cardiology Clinical Nurse Specialist still recommend monitor blood pressure given her history of preeclampsia. Check labs in the morning included creatinine since she received IV contrast as well. Objective - Vital Signs Vital signs: Vital Signs Temp 98.1 F 10/04/21 08:55 Pulse 78 10/04/21 08:55 Resp 18 10/04/21 08:55 BP 129/82 10/04/21 08:55 Pulse Ox 94 L 10/04/21 08:55 FiO2 Intake & Output 10/03/21 10/04/21 10/04/21 18:59 06:59 18:59 Intake Total 700 626.667 0 Output Total 2700 1650 300 Balance -1999 -1023.333 -300 Weight 111.6 kg Intake: Intake, IV Titration 500 126.667 Amount Magnesium Sulfate-Water 500 126.667 Pmx 20 gm In Water For Injection 1 500ml.bag @ 2 GM/HR 50 mls/hr IV .Q10H [facility] Rx#:[id number] Oral 200 500 0 Output: Urine 2700 1650 300 Other: Voiding Method Bedside Commode Bedside Commode # Voids 600 - Exam GENERAL: The patient is alert and oriented x3, not in any acute distress. Well developed, well nourished. HEENT: Pupils are round and equally reacting to light. EOMI. No scleral icterus. No conjunctival pallor. Normocephalic, atraumatic. No pharyngeal erythema. No thyromegaly. CARDIOVASCULAR: S1 and S2 present. No murmurs, rubs, or gallops. -PULMONARY: Chest is clear to auscultation, no wheezing bilateral crepitation Abdomen: Soft, nontender, nondistended, normoactive bowel sounds. No palpable organomegaly. MUSCULOSKELETAL: No joint swelling or deformity. EXTREMITIES: No cyanosis, clubbing, or pedal edema. NEUROLOGICAL: Gross neurological examination did not reveal any focal deficits. SKIN: No rashes. no petechiae. - Labs CBC & Chem 7: 10/04/21 07:43 10/04/21 07:43 Labs: Abnormal Lab Results - Last 24 Hours (Table) 10/04/21 10/04/21 Range/Units 07:43 07:43 RBC 3.02 L (3.80-5.40) m/uL Hgb 8.2 L (11.4-16.0) gm/dL Hct 25.5 L (34.0-46.0) % Plt Count 453 H (150-450) k/uL Sodium 136 L (137-145) mmol/L Calcium 7.8 L (8.4-10.2) mg/dL Magnesium 3.0 H (1.6-2.3) mg/dL Total Protein 6.2 L (6.3-8.2) g/dL Albumin 3.3 L (3.5-5.0) g/dL Assessment and Plan Assessment: Acute pulmonary edema, rule out cardiomyopathy Acute hypoxic respiratory failure Possible urinary tract infection, follow-up urine culture Recent history of section about 7 days prior to hospitalization History of preeclampsia during Hypertension Plan: This is a pleasant 31 years old female who presents with pulmonary edema, poss ible UTI and the recent delivery. Continue to monitor blood pressure Continue with intravenous Lasix Several consultants on the case with the edgerman and UI APPLICATION DEVELOPER. Pulmonary consult Labs and medication were reviewed.. Continue same treatment. Continue with symptomatic treatment. Resume home medication. Monitor lytes and vitals. DVT and GI prophylaxis. Further recommendations as per clinical course of the patient DVT prophylaxis: Subcutaneous heparin GI Prophylaxis: Pepcid PT/OT: Pending Prognosis is guarded
== END 2021-10-04 17:58 | disposition home or self-care (01) | DRG 776 ==
LOC: EC 19:50 → 3SCARD 23:16
PROVIDERS: ADMIT Hospitalist; ATTEND Hospitalist
DX: O14.95 Unspecified pre-eclampsia, complicating the puerperium (principal); I50.31 Acute diastolic (congestive) heart failure; J96.01 Acute respiratory failure with hypoxia; I11.0 Hypertensive heart disease with heart failure; O99.43 Diseases of the circulatory system complicating the puerperium; O99.53 Diseases of the respiratory system complicating the puerperium; O90.81 Anemia of the puerperium; D64.9 Anemia, unspecified; Z88.2 Allergy status to sulfonamides; I08.1 Rheumatic disorders of both mitral and tricuspid valves; I27.20 Pulmonary hypertension, unspecified; Z98.51 Tubal ligation status; Z87.440 Personal history of urinary (tract) infections
CPT/HCPCS: 36415; 71045; 71046; 71275; 80048; 80053; 80076; 81001; 81003; 82239; 83615; 83735; 83880; 84145; 84443; 84484; 84550; 85025; 85379; 85610; 87086; 87502; 87635; 93005; 93306; 94640; 94760; 96365; 96366; 96375; 96376; 99285

== ENCOUNTER 2022-03-07 22:41 | Emergency (ER) | payer OTHER ==
[2022-03-07 23:00] VITALS: TEMP 97.6
[2022-03-07] MEDS ORDERED: ONDANSETRON 4 MG/2 ML VIAL IVP STA (23:33)
[2022-03-07] MEDS ORDERED: SODIUM CHLORIDE 0.9% 1,000 ML IV STA (23:33)
[2022-03-07] MEDS ORDERED: KETOROLAC 15 MG/ML 1 ML VIAL IVP STA (23:33)
[2022-03-07 23:38] LABS: Anisocytosis Slight; Basophils # (A) 0.1 k/uL (0-0.2); Basophils % (A) 1 %; Eosinophils # (A) 0.1 k/uL (0-0.7); Eosinophils % (A) 2 %; HCT 38.4 % (34.0-46.0); HGB 12.5 gm/dL (11.4-16.0); Lymphocytes # (A) 1.9 k/uL (1.0-4.8); Lymphocytes % (A) 27 %; MCH 24.3 pg (25.0-35.0); MCHC 32.6 g/dL (31.0-37.0); MCV 74.7 fL (80.0-100.0); Mean Platelet Volume 7.3; Microcytosis Slight; Monocytes # (A) 0.4 k/uL (0-1.0); Monocytes % (A) 5 %; Neutrophils # (A) 4.4 k/uL (1.3-7.7); Neutrophils % (A) 63 %; Platelet Count 309 k/uL (150-450); RBC 5.13 m/uL (3.80-5.40); RDW 16.2 % (11.5-15.5); WBC 6.9 k/uL (3.8-10.6)
[2022-03-07 23:47] LABS: ALT 46 U/L (4-34); AST 47 U/L (14-36); African American GFR (CKD) >90 (>60 ml/min/1.73 sqM); Alkaline Phosphatase 87 U/L (38-126); Amylase 67 U/L (30-110); Anion Gap 11 mmol/L; Blood Urea Nitrogen 17 mg/dL (7-17); Calcium 10.3 mg/dL (8.4-10.2); Carbon Dioxide 25 mmol/L (22-30); Chloride 102 mmol/L (98-107); Glucose 88 mg/dL (74-99); Lipase 57 U/L (23-300); Non-African American GFR(CKD) >90 (>60 ml/min/1.73 sqM); Sodium 138 mmol/L (137-145); Total Protein 9.3 g/dL (6.3-8.2)
[2022-03-07] MEDS ORDERED: MORPHINE SULFATE 4 MG/ML SYRINGE IVP STA (23:50)
[2022-03-07 23:57] LABS: Potassium 4.8 mmol/L (3.5-5.1)
--- NOTE | 2022-03-07 23:59 | ED ---
General Adult HPI - General Chief complaint: Abdominal Pain Stated complaint: Abd Pain Time Seen by Provider: 03/07/22 23:15 Source: patient, RN notes reviewed, old records reviewed Mode of arrival: ambulatory Limitations: no limitations - History of Present Illness Initial comments: Patient is a 32-year-old female with past medical history remarkable for recent , 6 months out from delivery was complicated by preeclampsia who presents emergency Department with on again off again right upper quadrant pain with right shoulder pain. Has been ongoing and has had issues in the past, however it has been more persistent over the last few days. Is associated with nausea and nonbilious emesis. Was seen at urgent care and sent her over concern for gallbladder attack. Denies any chest pain. States shortness of breath is better when the pain is bad. Otherwise no shortness of breath. No diarrhea. No constipation. No urinary complaints. He has some right sided posterior back pain as well. Primary complaint is of right-sided abdominal pain with nausea and vomiting. No vaginal discharge or bleeding. No other acute complaints at this time. Presents for further evaluation at this time. Denies constipation. - Related Data Home Medications Medication Instructions Recorded Confirmed No Known Home Medications 10/02/21 10/02/21 Allergies Allergy/AdvReac Type Severity Reaction Status Date / Time Sulfa (Sulfonamide Allergy Rash/Hives Verified 03/07/22 23:00 Antibiotics) Review of Systems ROS Statement: Those systems with pertinent positive or pertinent negative responses have been documented in the HPI. Review of Systems: CONST: Denies fever EYES: Denies blurry vision ENT: Denies nasal congestion C/V: Denies Chest pain RESP: Denies shortness of breath GI: Endorses abdominal pain : Denies dysuria SKIN: Denies rash. MSK: Endorses right shoulder pain NEURO: Denies headache ROS Other: All systems not noted in ROS Statement are negative. Past Medical History Past Medical History: No Reported History History of Any Multi-Drug Resistant Organisms: None Reported Past Surgical History: Section, Tonsillectomy Additional Past Surgical History / Comment(s): x3 Past Anesthesia/Blood Transfusion Reactions: No Reported Reaction Past Psychological History: No Psychological Hx Reported Smoking Status: Vaper Past Alcohol Use History: None Reported Past Drug Use History: None Reported General Exam - General Exam Comments Initial Comments: General: Appears in mild distress secondary to abdominal pain. HEAD: Normal with no signs of head trauma. EYES: PERRLA, EOMI, conjunctiva normal, no discharge. ENT: Hearing grossly intact, normal oropharynx. RESPIRATORY: Clear breath sounds bilaterally. No wheezes, rales, or rhonchi. C/V: Regular rate and rhythm. S1 and S2 auscultated, no edema, peripheral pulses 2+ and intact throughout ABD: Abdomen soft, nondistended. Tender to palpation epigastric region and right upper quadrant. No guarding. No rebound tenderness. No CVA tenderness to percussion. EXT: Normal range of motion, no obvious deformity. Tenderness palpation over the right shoulder somewhat but states it seems to be more inside. No left shoulder pain. Patient does have mid back pain at the level of the gallbladder primarily on the right side. SKIN: No rashes or lesions observed on exposed skin. NEURO: Alert and oriented 4. Limitations: no limitations Course Vital Signs 03/07/22 03/08/22 22:52 02:23 Temperature 97.6 F Pulse Rate 75 81 Respiratory 14 15 Rate Blood Pressure 140/88 131/74 O2 Sat by Pulse 98 100 Oximetry Medical Decision Making - Medical Decision Making Based on the patient's presentation and physical exam, I'm concerned for an acute abdominal process for the patient's current symptoms. Patient has right upper quadrant pain with radiation to the right shoulder which is somewhat classic for gallbladder pathology. We will obtain abdominal laboratory studies as well as a right upper quadrant ultrasound. Patient was given IV analgesia with morphine, IV Zofran, IV fluids. Vital signs within acceptable limits. Patient's laboratory studies are remarkable for no evidence of hepatobiliary obstruction, his total bilirubin, LFTs, alk phos, pancreatic enzymes all within acceptable limits. Remainder the labs are unremarkable and within acceptable limits. Patient's color ultrasound does reveal multiple cholelithiasis. No evidence of cholecystitis. CBD within normal limits. On reevaluation, patient is feeling improved. I did discuss with her that she is likely expressing biliary colic. This is been a re-current issue. We will by mouth challenge her at this time. She was in agreement this plan. Patient did tolerate oral intake. She would like to go home. I believe this is reasonable. She'll follow-up with her PCP in the next few days. She'll be given starter packs of ODT Zofran as well as tylenol 3 for home. We did discuss the use history of this with breast-feeding, and patient does accept the risks, particularly with Tylenol threes. I did discuss with her and I recommended possibly avoiding direct breast-feeding while using Tylenol threes because codeine can make her child sleepy. She did express understanding of this. She was in agreement this plan. She'll take them but only use them if necessary. I instructed the patient to follow up with their PCP in the next 1-3 days. I explained that the patient should return to the emergency department if they experience any worsening symptoms. Strict return precautions were discussed with the patient. The patient expressed understanding of these instructions. I answered all questions that the patient had. The patient was discharged home in good condition with their prescriptions and follow up information. Was pt. sent in by a medical professional or institution ([facility], CONVEYOR LOADER, urgent care, hospital, or care home...) When possible be specific @ -No Did you speak to anyone other than the patient for history (EMS, parent, family, police, friend...)? What history was obtained from this source @ -No Did you review nursing and triage notes (agree or disagree)? Why? @ -I reviewed and agree with nursing and triage notes, and agree except that the patient is complaining of pain mostly towards her right shoulder blade. Not between the shoulder blades. Other sources of the pain is in the right upper quadrant. Were old charts reviewed (outside hosp., previous admission, EMS record, old EKG, old radiological studies, urgent care reports/EKG's, care home records)? Report findings @ -No old charts were reviewed Differential Diagnosis (chest pain, altered mental status, abdominal pain women, abdominal pain men, vaginal bleeding, weakness, fever, dyspnea, syncope, headache, dizziness, GI bleed, back pain, seizure, CVA, palpatations, mental health)? @ -Differential Abdominal Pain Women: Appendicitis, Cholecystitis, diverticulosis, ischemic bowel, pancreatitis, hepatitis, UTI, gastroenteritis, AAA, incarcerated hernia, bowel obstruction, constipation, inflammatory bowel, hepatitis, peptic ulcer disease, splenic infarction, perforated viscus, vulvitis, ovarian torsion, PID, kidney stone, placenta abruption, this is not meant to be an all-inclusive list EKG interpreted by me (3pts min.). @ -None done X-rays interpreted by me (1pt min.). @ -None done CT interpreted by me (1pt min.). @ -None done U/S interpreted by me (1pt. min.). @ -Gallbladder ultrasound revealed multiple gallstones with no evidence of cholecystitis, normal sinus CBD. What testing was considered but not performed or refused? (CT, X-rays, U/S, labs)? Why? @ -None What meds were considered but not given or refused? Why? @ -None Did you discuss the management of the patient with other professionals (professionals i.e. Dr., PA, CONVEYOR LOADER, lab, RT, psych nurse, social media project manager, work distributor, teacher, bsa officer, window caser)? Give summary @ -No Was smoking cessation discussed for >3mins.? @ -No Was critical care preformed (if so, how long)? @ -No Were there social determinants of health that impacted care today? How? (Homelessness, low income, unemployed, alcoholism, drug addiction, transportation, low edu. Level, literacy, decrease access to med. care, fci, rehab)? @ -No Was there de-escalation of care discussed even if they declined (Discuss DNR or withdrawal of care, Hospice)? DNR status @ -No What co-morbidities impacted this encounter? (DM, HTN, Smoking, COPD, CAD, Cancer, CVA, ARF, Chemo, Hep., AIDS, mental health diagnosis, sleep apnea, morbid obesity)? @ -None Was patient admitted / discharged? Hospital course, mention meds given and route, prescriptions, significant lab abnormalities, going to OR and other perti nent info. @ -Discharged home. See above for ED course. Undiagnosed new problem with uncertain prognosis? @ -No Drug Therapy requiring intensive monitoring for toxicity (Heparin, Nitro, Insulin, Cardizem)? @ -No Were any procedures done? @ -No Diagnosis/symptom? @ -Biliary colic Acute, or Chronic, or Acute on Chronic? @ -Acute on chronic Uncomplicated (without systemic symptoms) or Complicated (systemic symptoms)? @ -Uncomplicated Side effects of treatment? @ -No Exacerbation, Progression, or Severe Exacerbation? @ -No Poses a threat to life or bodily function? How? (Chest pain, [place], [place], pneumonia, PE, COPD, DKA, ARF, appy, cholecystitis, CVA, Diverticulitis, Homicidal, Suicidal, threat to staff... and all critical care pts) @ -No Diagnosis/symptom? @ -Nausea and vomiting Acute, or Chronic, or Acute on Chronic? @ -Acute Uncomplicated (without systemic symptoms) or Complicated (systemic symptoms)? @ -Uncomplicated Side effects of treatment? @ -none Exacerbation, Progression, or Severe Exacerbation] @ -no Poses a threat to life or bodily function? @ -no - Lab Data Result diagrams: 03/07/22 23:24 03/07/22 23:24 Lab Results 03/07/22 03/07/22 Range/Units 23:24 23:24 WBC 6.9 (3.8-10.6) k/uL RBC 5.13 (3.80-5.40) m/uL Hgb 12.5 (11.4-16.0) gm/dL Hct 38.4 (34.0-46.0) % MCV 74.7 L (80.0-100.0) fL MCH 24.3 L (25.0-35.0) pg MCHC 32.6 (31.0-37.0) g/dL RDW 16.2 H (11.5-15.5) % Plt Count 309 (150-450) k/uL MPV 7.3 Neutrophils % 63 % Lymphocytes % 27 % Monocytes % 5 % Eosinophils % 2 % Basophils % 1 % Neutrophils # 4.4 (1.3-7.7) k/uL Lymphocytes # 1.9 (1.0-4.8) k/uL Monocytes # 0.4 (0-1.0) k/uL Eosinophils # 0.1 (0-0.7) k/uL Basophils # 0.1 (0-0.2) k/uL Anisocytosis Slight Microcytosis Slight Sodium 138 (137-145) mmol/L Potassium 4.8 (3.5-5.1) mmol/L Chloride 102 (98-107) mmol/L Carbon Dioxide 25 (22-30) mmol/L Anion Gap 11 mmol/L BUN 17 (7-17) mg/dL Creatinine 0.56 (0.52-1.04) mg/dL Est GFR (CKD-EPI)AfAm >90 (>60 ml/min/1.73 sqM) Est GFR (CKD-EPI)NonAf >90 (>60 ml/min/1.73 sqM) Glucose 88 (74-99) mg/dL Calcium 10.3 H (8.4-10.2) mg/dL Total Bilirubin 1.0 (0.2-1.3) mg/dL AST 47 H (14-36) U/L ALT 46 H (4-34) U/L Alkaline Phosphatase 87 (38-126) U/L Total Protein 9.3 H (6.3-8.2) g/dL Albumin 5.0 (3.5-5.0) g/dL Amylase 67 (30-110) U/L Lipase 57 (23-300) U/L Disposition Clinical Impression: Biliary colic, Nausea and vomiting Disposition: HOME SELF-CARE Condition: Good Instructions (If sedation given, give patient instructions): Biliary Colic (ED), Abdominal Pain (ED) Is patient prescribed a controlled substance at d/c from ED?: No Referrals: None,Stated [Primary Care Provider] - 1-2 days Time of Disposition: 02:10
--- NOTE | 2022-03-08 01:05 | US ---
EXAMINATION TYPE: US gallbladder DATE OF EXAM: 03/08/2022 COMPARISON: NONE CLINICAL HISTORY: RUQ pain. RUQ pain, nausea TECHNIQUE: Multiple sonographic images of the right upper quadrant are obtained. FINDINGS: EXAM MEASUREMENTS: Liver Length: 21.5 cm Gallbladder Wall: 0.3 cm Right Kidney: 9.1 x 3.5 x 3.4 cm CHARGEMASTER SPECIALIST NOTES:technical limitations due to patient's body habitus and overlying bowel content Pancreas: Tail obscured by overlying bowel gas Liver: enlarged Gallbladder: stones Evidence for sonographic García's sign: no CBD: Obscured by overlying bowel gas Right Kidney: limited evaluation IMPRESSION: There is hepatomegaly. Multiple gallstones. No dilated ducts. Intrahepatic bile ducts are nondilated. Common bile duct are not seen.
[2022-03-08] MEDS ORDERED: MORPHINE SULFATE 4 MG/ML SYRINGE IVP STA (01:26)
[2022-03-08] MEDS ORDERED: ACET/COD 300 MG/30 MG STARTER PACK 6 TAB BTL PO STA (01:26)
[2022-03-08] MEDS ORDERED: ONDANSETRON 4 MG ODT STARTER PACK 2 TAB BTL PO STA (01:26)
[2022-03-08 02:24] VITALS: BP 131/74; PULSE 81; RESP 15
== END 2022-03-08 02:32 | disposition home or self-care (01) ==
LOC: EC 22:41
DX: R10.84 Generalized abdominal pain (principal); R11.2 Nausea with vomiting, unspecified; F17.290 Nicotine dependence, other tobacco product, uncomplicated; Z88.1 Allergy status to other antibiotic agents; Z88.2 Allergy status to sulfonamides
CPT/HCPCS: 36415; 76705; 80053; 82150; 83690; 85025; 96361; 96374; 96375; 96376; 99284

== ENCOUNTER 2022-12-07 11:11 | Emergency (ER) | payer OTHER ==
[2022-12-07 11:31] VITALS: TEMP 98.3
--- NOTE | 2022-12-07 11:50 | ED ---
General Adult HPI - General Chief complaint: Back Pain/Injury Stated complaint: Back Pain Time Seen by Provider: 12/07/22 11:23 Source: patient, RN notes reviewed Mode of arrival: ambulatory Limitations: no limitations - History of Present Illness Initial comments: 32 year old female presents to the emergency department for chief complaint of back pain x2 hours. She states she bent over to put her baby down and had a sudden pain in her right-sided low back which radiates down the posterior side of her right leg. She states that she sat on a chair following this and had difficulty getting back up. She states that the pain is worse with movement. She states that the pain is better with standing. She denies loss of bowel or bladder function, saddle anesthesia, urinary retention, fever, chills. - Related Data Previous Rx's Medication Instructions Recorded Lidocaine 5% Patch [Lidoderm 5% 1 patch TOPICAL DAILY #30 patch 12/07/22 Patch] predniSONE 10 mg PO BID #10 tab 12/07/22 Allergies Allergy/AdvReac Type Severity Reaction Status Date / Time Sulfa (Sulfonamide Allergy Rash/Hives Verified 12/07/22 11:19 Antibiotics) Review of Systems ROS Statement: Those systems with pertinent positive or pertinent negative responses have been documented in the HPI. ROS Other: All systems not noted in ROS Statement are negative. Past Medical History Past Medical History: No Reported History History of Any Multi-Drug Resistant Organisms: None Reported Past Surgical History: Section, Tonsillectomy Additional Past Surgical History / Comment(s): x3 Past Anesthesia/Blood Transfusion Reactions: No Reported Reaction Past Psychological History: Depression Smoking Status: Vaper Past Alcohol Use History: None Reported Past Drug Use History: None Reported General Exam Limitations: no limitations General appearance: alert, in no apparent distress Head exam: Present: atraumatic, normocephalic, normal inspection Neck exam: Present: normal inspection. Absent: tenderness, meningismus, lymphadenopathy Respiratory exam: Present: normal lung sounds bilaterally. Absent: respiratory distress, wheezes, rales, rhonchi, stridor Cardiovascular Exam: Present: regular rate, normal rhythm, normal heart sounds. Absent: systolic murmur, diastolic murmur, rubs, gallop, clicks GI/Abdominal exam: Present: soft, normal bowel sounds. Absent: distended, tenderness, guarding, rebound, rigid Extremities exam: Present: normal inspection, full ROM, normal capillary refill. Absent: tenderness, pedal edema, joint swelling, calf tenderness Back exam: Present: normal inspection, full ROM. Absent: tenderness, CVA tenderness (R), CVA tenderness (L) Neurological exam: Present: alert, oriented X3 Psychiatric exam: Present: normal affect, normal mood Skin exam: Present: warm, dry, intact, normal color. Absent: rash Course Vital Signs 12/07/22 12/07/22 11:19 14:11 Temperature 98.3 F Pulse Rate 64 86 Respiratory 18 16 Rate Blood Pressure 137/81 145/68 O2 Sat by Pulse 98 Oximetry Medical Decision Making - Medical Decision Making Was pt. sent in by a medical professional or institution (, PA, F[employer], urgent care, hospital, or fpc...) When possible be specific @ -No Did you speak to anyone other than the patient for history (EMS, parent, family, police, friend...)? What history was obtained from this source @ -No Did you review nursing and triage notes (agree or disagree)? Why? @ -I reviewed and agree with nursing and triage notes Were old charts reviewed (outside hosp., previous admission, EMS record, old EKG, old radiological studies, urgent care reports/EKG's, fpc records)? Report findings @ -No old charts were reviewed Differential Diagnosis (chest pain, altered mental status, abdominal pain women, abdominal pain men, vaginal bleeding, weakness, fever, dyspnea, syncope, headache, dizziness, GI bleed, back pain, seizure, CVA, palpatations, mental health, musculoskeletal)? @ -Differential Back Pain: Strain, zoster, cauda equina syndrome, epidural abscess, vertebral osteomyelitis, discitis, fracture, subluxation, disc herniation, DJD, spinal stenosis, dissection, AAA, pancreatitis, peptic ulcer disease, pyelonephritis, kidney stone, this is not meant to be an all-inclusive list. EKG interpreted by me (3pts min.). @ -none X-rays interpreted by me (1pt min.). @ -None done CT interpreted by me (1pt min.). @ -None done U/S interpreted by me (1pt. min.). @ -None done What testing was considered but not performed or refused? (CT, X-rays, U/S, labs)? Why? @ -XR considered she does not have any red flag symptoms, no midline tenderness What meds were considered but not given or refused? Why? @ -None Did you discuss the management of the patient with other professionals (professionals i.e. , PA, [employer], lab, RT, psych nurse, social sciences research scientist, roofing plant supervisor, teacher, deputy juvenile officer, rn case mgr)? Give summary @ -No Was smoking cessation discussed for >3mins.? @ -No Was critical care preformed (if so, how long)? @ -No Were there social determinants of health that impacted care today? How? (Homelessness, low income, unemployed, alcoholism, drug addiction, transportation, low edu. Level, literacy, decrease access to med. care, residential, rehab)? @ -No Was there de-escalation of care discussed even if they declined (Discuss DNR or withdrawal of care, Hospice)? DNR status @ -No What co-morbidities impacted this encounter? (DM, HTN, Smoking, COPD, CAD, Cancer, CVA, ARF, Chemo, Hep., AIDS, mental health diagnosis, sleep apnea, morbid obesity)? @ -None Was patient admitted / discharged? Hospital course, mention meds given and route, prescriptions, significant lab abnormalities, going to OR and other pertinent info. @ -Discharged. 32-year-old female presents to the emergency department chief complaint of right-sided back pain and buttock pain radiating down the posterior aspect of her right leg that started after she bent down to her baby down. Patient given Toradol, Tylenol, lidocaine patch which slightly improved her symptoms. Following this, patient given morphine which improved her symptoms. Considered x-ray but patient is not having any red flag symptoms, significant trauma. Patient was agreeable with plan for pain control. Patient will be discharged home without any Tylenol Motrin and lidocaine patches. Stable on discharge. Case discussed with Dr. Schulz Undiagnosed new problem with uncertain prognosis? @ -No Drug Therapy requiring intensive monitoring for toxicity (Heparin, Nitro, Insulin, Cardizem)? @ -No Were any procedures done? @ -No Diagnosis/symptom? @ -sciatica Acute, or Chronic, or Acute on Chronic? @ -acute Uncomplicated (without systemic symptoms) or Complicated (systemic symptoms)? @ -uncomplicated Side effects of treatment? @ -No Exacerbation, Progression, or Severe Exacerbation? @ -No Poses a threat to life or bodily function? How? (Chest pain, [place], [place], pneumonia, PE, COPD, DKA, ARF, appy, cholecystitis, CVA, Diverticulitis, Homicidal, Suicidal, threat to staff... and all critical care pts) @ -No Disposition Clinical Impression: Sciatica Disposition: HOME SELF-CARE Condition: Stable Instructions (If sedation given, give patient instructions): Acute Low Back Pain (ED) Additional Instructions: Please utilize Tylenol with the lidocaine patches. Follow up with your primary care provider. Return to the emergency department for new or worsening symptoms. Prescriptions: Lidocaine 5% Patch [Lidoderm 5% Patch] 1 patch TOPICAL DAILY #30 patch predniSONE 10 mg PO BID #10 tab Is patient prescribed a controlled substance at d/c from ED?: No Referrals: Pierre Go DO [Primary Care Provider] - 1-2 days
[2022-12-07] MEDS ORDERED: ACETAMINOPHEN TAB 325 MG TAB PO STA (11:58)
[2022-12-07] MEDS ORDERED: LIDOCAINE 5% PATCH TOPICAL STA (11:58)
[2022-12-07] MEDS ORDERED: KETOROLAC 15 MG/ML 1 ML VIAL IM STA (12:12)
[2022-12-07] MEDS ORDERED: MORPHINE SULFATE 4 MG/ML SYRINGE IM STA (13:39)
[2022-12-07 14:22] VITALS: BP 145/68; PULSE 86; RESP 16
== END 2022-12-07 14:18 | disposition home or self-care (01) ==
LOC: EC 11:11
DX: M54.41 Lumbago with sciatica, right side (principal); F17.290 Nicotine dependence, other tobacco product, uncomplicated; Z86.59 Personal history of other mental and behavioral disorders
CPT/HCPCS: 99283; 96372 ×2; J2270; J1885

== ENCOUNTER → 2023-03-26 | Outpatient (CLI) | payer OTHER ==
--- NOTE | 2023-03-26 14:12 | US ---
EXAMINATION TYPE: US thyroid st tissue head/neck DATE OF EXAM: 03/26/2023 COMPARISON: NONE CLINICAL INDICATION: Female, 33 years old with history of E03.9 HYPOTHYROIDISM; hypothyroidism GLAND SIZE: Right Lobe: 5.5 x 2.4 x 1.9 cm Overall Parenchyma: heterogenous Left Lobe: 48 x 2.0 x 1.9 cm Overall Parenchyma: heterogenous Isthmus Thickness: 0.4 cm NODULES RIGHT: # of nodules measured on right: 0 LEFT: # of nodules measured on left: 0 ISTHMUS: # of nodules measured in the isthmus: 0 Bilateral neck scanned, no evidence of lymphadenopathy. IMPRESSION: Heterogenous bilateral thyroid gland correlate with serum markers. Findings compatible with thyroidit is.
== END | disposition home or self-care (01) ==
LOC: RADUSWWP 13:20
PROVIDERS: ATTEND Family Medicine
DX: E03.9 Hypothyroidism, unspecified (principal); E04.1 Nontoxic single thyroid nodule
CPT/HCPCS: 76536

== ENCOUNTER 2023-10-24 09:55 | Emergency (ER) | payer OTHER ==
[2023-10-24 09:58] VITALS: BP 140/80; PULSE 90; RESP 18; TEMP 98.2
--- NOTE | 2023-10-24 10:53 | ED ---
General Adult HPI - General Chief complaint: Abdominal Pain Stated complaint: abd pain,back pain Time Seen by Provider: 10/24/23 10:05 Source: patient Mode of arrival: ambulatory Limitations: no limitations - History of Present Illness Initial comments: Dictation was produced using [employer] dictation software. please excuse any grammatical, word or spelling errors. Chief Complaint: 33-year-old female presents emergency department with back pain and abdominal pain History of Present Illness: Patient 33-year-old female presents to the emergency department with flareup of her intermittent chronic back. Abdominal pain. Patient states that her symptoms have been ongoing for the last 24 hours. She states that there is some nausea diarrhea. She is at night and feels like it is worse. Does feel nauseated. No vomiting. Denies any fever constitutional symptoms. Patient scheduled to have a hysterectomy however it was canceled due to insurance issues. The ROS documented in this emergency department record has been reviewed and confirmed by me. Those systems with pertinent positive or negative responses have been documented in the HPI. All other systems are other negative and/or noncontributory. - Related Data Previous Rx's Medication Instructions Recorded Lidocaine 5% Patch [Lidoderm 5% 1 patch TOPICAL DAILY #30 patch 12/07/22 Patch] predniSONE 10 mg PO BID #10 tab 12/07/22 Allergies Allergy/AdvReac Type Severity Reaction Status Date / Time Sulfa (Sulfonamide Allergy Rash/Hives Verified 10/24/23 09:58 Antibiotics) Review of Systems ROS Statement: Those systems with pertinent positive or pertinent negative responses have been documented in the HPI. ROS Other: All systems not noted in ROS Statement are negative. Past Medical History Past Medical History: No Reported History History of Any Multi-Drug Resistant Organisms: None Reported Past Surgical History: Section, Tonsillectomy Additional Past Surgical History / Comment(s): x3 Past Anesthesia/Blood Transfusion Reactions: No Reported Reaction Past Psychological History: Depression Smoking Status: Vaper Past Alcohol Use History: None Reported Past Drug Use History: None Reported General Exam - General Exam Comments Initial Comments: PHYSICAL EXAM: General Impression: Alert and oriented x3, not in acute distress HEENT: Normocephalic atraumatic, extra-ocular movements intact, pupils equal and reactive to light bilaterally, mucous membranes moist. Cardiovascular: Heart regular rate and rhythm Chest: Able to complete full sentences, no retractions, no tachypnea Abdomen: abdomen soft, non-tender, non-distended, no organomegaly Musculoskeletal: Pulses present and equal in all extremities, no peripheral edema Motor: no focal deficits noted Neurological: CN II-XII grossly intact, no focal motor or sensory deficits noted Skin: Intact with no visualized rashes Psych: Normal affect and mood Limitations: no limitations Course Vital Signs 10/24/23 09:56 Temperature 98.2 F Pulse Rate 90 Respiratory 18 Rate Blood Pressure 140/80 O2 Sat by Pulse 98 Oximetry - Reevaluation(s) Reevaluation #1: 10/24/23 13:22 Was notified by nurse that patient had eloped. According to nurse she did sign AMA papers however I was not able to have a conversation with patient regarding her findings. Medical Decision Making - Medical Decision Making Was pt. sent in by a medical professional or institution (, PA, SENIOR APPLICATION SECURITY CONSULTANT, urgent care, hospital, or prison...) When possible be specific @ -No Did you speak to anyone other than the patient for history (EMS, parent, family, police, friend...)? What history was obtained from this source @ -No Did you review nursing and triage notes (agree or disagree)? Why? @ -I reviewed and agree with nursing and triage notes Were old charts reviewed (outside hosp., previous admission, EMS record, old EKG, old radiological studies, urgent care reports/EKG's, prison records)? Report findings @ -No old charts were reviewed Differential Diagnosis (chest pain, altered mental status, abdominal pain women, abdominal pain men, vaginal bleeding, musculoskeletal, weakness, fever, dyspnea, syncope, headache, dizziness, GI bleed, back pain, seizure, CVA, palpatations, mental health)? @ -Differential Abdominal Pain Women: Appendicitis, Cholecystitis, diverticulosis, ischemic bowel, pancreatitis, hepatitis, UTI, gastroenteritis, AAA, incarcerated hernia, bowel obstruction, constipation, inflammatory bowel, hepatitis, peptic ulcer disease, splenic infarction, perforated viscus, vulvitis, ovarian torsion, PID, kidney stone, placenta abruption, this is not meant to be an all-inclusive list EKG interpreted by me (3pts min.). @ -None done X-rays interpreted by me (1pt min.). @ -None done CT interpreted by me (1pt min.). @ -CT shows cholelithiasis and renal mass with perinephric fluid U/S interpreted by me (1pt. min.). @ -None done What testing was considered but not performed or refused? (CT, X-rays, U/S, labs)? Why? @ -None What meds were considered but not given or refused? Why? @ -None Was smoking cessation discussed for >3mins.? @ -No Were there social determinants of health that impacted care today? How? (Homeles sness, low income, unemployed, alcoholism, drug addiction, transportation, low edu. Level, literacy, decrease access to med. care, intermediate, rehab)? @ -No Was there de-escalation of care discussed even if they declined (Discuss DNR or withdrawal of care, Hospice)? DNR status @ -No What co-morbidities impacted this encounter? (DM, HTN, Smoking, COPD, CAD, Cancer, CVA, ARF, Chemo, Hep., AIDS, mental health diagnosis, sleep apnea, morbid obesity)? @ -None Was patient admitted / discharged? Hospital course, mention meds given and route, prescriptions, significant lab abnormalities, going to OR and other pertinent info. @ -33-year-old female presents to the emergency department with abdominal pain and back pain. Vital signs upon arrival are within acceptable limits. Patient was well-appearing at the bedside upon my initial evaluation. Laboratory evaluation obtained. Hemoglobin 7.7. Metabolic panel is within acceptable limits. Urinalysis showed Nitrate positive urinary tract infection. CT scan showed perinephric stranding. Patient given ceftriaxone, Reglan. I was notified by nurse that she had eloped. Did you discuss the management of the patient with other professionals (armida jara i.e. , PA, SENIOR APPLICATION SECURITY CONSULTANT, lab, RT, psych nurse, social media editor, evaporator helper, teacher, president and chief commercial officer, assistant case manager)? Give summary @ -No Was critical care preformed (if so, how long)? @ -No Undiagnosed new problem with uncertain prognosis? @ -No Drug Therapy requiring intensive monitoring for toxicity (Heparin, Nitro, Insulin, Cardizem)? @ -No Were any procedures done? @ -No Diagnosis/symptom? Acute, or Chronic, or Acute on Chronic? Uncomplicated (without systemic symptoms) or Complicated (systemic symptoms)? @ -Pyelonephritis Side effects of treatment? @ -No Exacerbation, Progression, or Severe Exacerbation? @ -No Poses a threat to life or bodily function? How? (Chest pain, [place], [place], pneumonia, PE, COPD, DKA, ARF, appy, cholecystitis, CVA, Diverticulitis, Homicidal, Suicidal, threat to staff... and all critical care pts) @ -yes - Lab Data Result diagrams: 10/24/23 10:55 10/24/23 10:55 Lab Results 10/24/23 10/24/23 10/24/23 Range/Units 10:55 10:55 10:55 WBC 9.7 (3.8-10.6) k/uL RBC 3.74 L (3.80-5.40) m/uL Hgb 7.7 L (11.4-16.0) gm/dL Hct 25.1 L (34.0-46.0) % MCV 67.0 L (80.0-100.0) fL MCH 20.5 L (25.0-35.0) pg MCHC 30.6 L (31.0-37.0) g/dL RDW 15.6 H (11.5-15.5) % Plt Count 287 (150-450) k/uL MPV 7.7 Neutrophils % 82 % Lymphocytes % 11 % Monocytes % 6 % Eosinophils % 0 % Basophils % 0 % Neutrophils # 7.9 H (1.3-7.7) k/uL Lymphocytes # 1.0 (1.0-4.8) k/uL Monocytes # 0.6 (0-1.0) k/uL Eosinophils # 0.0 (0-0.7) k/uL Basophils # 0.0 (0-0.2) k/uL Hypochromasia Marked Poikilocytosis Slight Microcytosis Marked Sodium 136 L (137-145) mmol/L Potassium 3.8 (3.5-5.1) mmol/L Chloride 103 (98-107) mmol/L Carbon Dioxide 24 (22-30) mmol/L Anion Gap 9 mmol/L BUN 11 (7-17) mg/dL Creatinine 0.68 (0.52-1.04) mg/dL Est GFR (CKD-EPI)AfAm >90 (>60 ml/min/1.73 sqM) Est GFR (CKD-EPI)NonAf >90 (>60 ml/min/1.73 sqM) Glucose 114 H (74-99) mg/dL Calcium 9.4 (8.4-10.2) mg/dL Total Bilirubin 1.6 H (0.2-1.3) mg/dL AST 23 (14-36) U/L ALT 23 (4-34) U/L Alkaline Phosphatase 60 (38-126) U/L Total Protein 7.2 (6.3-8.2) g/dL Albumin 4.2 (3.5-5.0) g/dL Lipase 32 (23-300) U/L Urine Color Colorless Urine Appearance Cloudy H (Clear) Urine pH 6.5 (5.0-8.0) Ur Specific [place] 1.017 (1.001-1.035) Urine Protein Negative (Negative) Urine Glucose (UA) Negative (Negative) Urine Ketones Negative (Negative) Urine Blood Small H (Negative) Urine Nitrite Positive H (Negative) Urine Bilirubin Negative (Negative) Urine Urobilinogen <2.0 (<2.0) mg/dL Ur Leukocyte Esterase Trace H (Negative) Urine RBC 5 (0-5) /hpf Urine WBC 10 H (0-5) /hpf Ur Squamous Epith Cells 6 H (0-4) /hpf Urine Bacteria Rare H (None) /hpf Disposition Clinical Impression: Pyelonephritis Disposition: LEFT AGAINST MEDICAL ADVICE Condition: Serious Referrals: Pierre Go DO [Primary Care Provider] - 1-2 days Time of Disposition: 13:25
[2023-10-24 11:09] LABS: Basophils % (A) 0 %; Eosinophils % (A) 0 %; HCT 25.1 % (34.0-46.0); HGB 7.7 gm/dL (11.4-16.0); Hypochromasia Marked; Lymphocytes % (A) 11 %; MCH 20.5 pg (25.0-35.0); MCHC 30.6 g/dL (31.0-37.0); Mean Platelet Volume 7.7; Microcytosis Marked; Monocytes # (A) 0.6 k/uL (0-1.0); Monocytes % (A) 6 %; Neutrophils # (A) 7.9 k/uL (1.3-7.7); Neutrophils % (A) 82 %; Platelet Count 287 k/uL (150-450); Poikilocytosis Slight; RBC 3.74 m/uL (3.80-5.40); RDW 15.6 % (11.5-15.5); WBC 9.7 k/uL (3.8-10.6)
[2023-10-24 11:12] LABS: Appearance,Urine Cloudy (Clear); Bacteria,Urine Rare /hpf; Bilirubin,Urine Negative (Negative); Blood,Urine Small (Negative); Color,Urine Colorless; Glucose,Urine (UA) Negative (Negative); Ketones,Urine Negative (Negative); Leukocyte Esterase,Urine Trace (Negative); Nitrite,Urine Positive (Negative); PH, Urine 6.5 (5.0-8.0); Protein,Urine Negative (Negative); RBC,Urine 5 /hpf (0-5); Specific Gravity,Urine 1.017 (1.001-1.035); Squamous Epithelial Cell,Urine 6 /hpf (0-4); Urobilinogen,Urine <2.0 mg/dL (<2.0); WBC,Urine 10 /hpf (0-5)
[2023-10-24 11:21] LABS: ALT 23 U/L (4-34); AST 23 U/L (14-36); African American GFR (CKD) >90 (>60 ml/min/1.73 sqM); Albumin 4.2 g/dL (3.5-5.0); Alkaline Phosphatase 60 U/L (38-126); Anion Gap 9 mmol/L; Blood Urea Nitrogen 11 mg/dL (7-17); Calcium 9.4 mg/dL (8.4-10.2); Carbon Dioxide 24 mmol/L (22-30); Chloride 103 mmol/L (98-107); Glucose 114 mg/dL (74-99); Lipase 32 U/L (23-300); Non-African American GFR(CKD) >90 (>60 ml/min/1.73 sqM); Potassium 3.8 mmol/L (3.5-5.1); Sodium 136 mmol/L (137-145); Total Bilirubin 1.6 mg/dL (0.2-1.3); Total Protein 7.2 g/dL (6.3-8.2)
--- NOTE | 2023-10-24 12:38 | CT ---
EXAMINATION TYPE: CT abdomen pelvis w con DATE OF EXAM: 10/24/2023 COMPARISON: None HISTORY: ABD PAIN CT DLP: 2338 mGycm Automated exposure control for dose reduction was used. TECHNIQUE: Helical acquisition of images was performed from the lung bases through the pelvis. CONTRAST: Performed without Oral Contrast and with IV Contrast, patient injected with 100 ml mL of Isovue 300. FINDINGS: There are 2 sub-6 mm nodules in the left lower lobe. There is no lung infiltrate or pleural effusion. There is a gallstones within a markedly contracted gallbladder. There is no biliary ductal dilatation . There is no organomegaly of the liver, pancreas, spleen or adrenal glands. There are no focal masses within the liver, pancreas, spleen or adrenal glands. There are no renal calcifications or hydronephrosis. There is no solid renal mass. There is mild hazy perinephric fluid density adjacent to the anterolateral aspect of the right kidney. The caliber of the abdominal aorta is normal and there is no retroperitoneal adenopathy or hemorrhage . The bowel loops are normal in caliber is no evidence of obstruction. No inflammatory changes are iden tified in the mesentery and there is no free intraperitoneal air or fluid. There is no pelvic mass, free fluid, abscess or adenopathy. Pessary device in the cervical region of the uterus. . The osseous structures and soft tissues are unremarkable. IMPRESSION: 1. Cholelithiasis with a markedly contracted gallbladder. 2. 2 sub-6 mm left lower lobe pulmonary nodules. 3. Ill-definition of the anterior lateral aspect of the right renal cortex with small cysts and mild perinephric fluid density raising the question of cyst rupture or possibly acute pyelonephritis. Clin ical correlation is recommended.
[2023-10-24] MEDS: cefTRIAXone IN SWFI 1,000 MG/10 ML SYRINGE IVP STA (12:46)
[2023-10-24] MEDS: METOCLOPRAMIDE 5 MG/ML 2 ML VIAL IVP STA (12:46)
[2023-10-24] MEDS ORDERED: MORPHINE SULFATE 4 MG/ML SYRINGE IV STA (13:07)
== END 2023-10-24 13:19 | disposition left against medical advice (07) ==
LOC: EC 09:55
CPT/HCPCS: 36415; 74177; 80053; 81001; 83690; 85025; 96374; 96375; 99284

== ENCOUNTER 2023-10-25 00:50 | Emergency (ER) | payer OTHER ==
--- NOTE | 2023-10-25 01:10 | ED ---
Abdominal Pain HPI - General Source: patient, family, RN notes reviewed Mode of arrival: ambulatory Limitations: no limitations <Sunshine Alvarez - Last Filed: 10/25/23 01:07> - History of Present Illness MD Complaint: abdominal pain -: days(s) Location: diffuse Migration to: periumbilical, epigastric, suprapubic Severity: moderate Severity scale (1-10): 5 Quality: stabbing, aching, fullness Consistency: constant Improves With: nothing Worsens With: nothing <Tristan Schulz - Last Filed: 11/12/23 20:35> - General Chief Complaint: Abdominal Pain Stated Complaint: Abdominal Pain, Fever Time Seen by Provider: 10/25/23 01:00 - History of Present Illness Initial Comments: Quick Note: This is a 33-year-old female who presents to the emergency department for abdominal pain. 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 She was diagnosed with a UTI and had a CT scan done, but had to leave before the results returned. This pain has been going on for the last couple of days, but seems to be getting worse. Pain is primarily in the right lower quadrant. She has started to develop fevers as well. (Sunshine Alvarez) This is a 33-year-old female to ER for abdominal pain who left AMA, currently was looking for possible causes of abdominal pain and presents to the ER for further evaluation and management (Tristan Schulz) - Related Data Previous Rx's Medication Instructions Recorded Lidocaine 5% Patch [Lidoderm 5% 1 patch TOPICAL DAILY #30 patch 12/07/22 Patch] predniSONE 10 mg PO BID #10 tab 12/07/22 Cefpodoxime Proxetil [Vantin] 200 mg PO Q12HR 10 Days #20 tab 10/25/23 Allergies Allergy/AdvReac Type Severity Reaction Status Date / Time Sulfa (Sulfonamide Allergy Rash/Hives Verified 10/25/23 01:11 Antibiotics) Review of Systems ROS Other: All systems not noted in ROS Statement are negative. <Sunshine Alvarez - Last Filed: 10/25/23 01:07> ROS Other: All systems not noted in ROS Statement are negative. <Tristan Schulz - Last Filed: 11/12/23 20:35> ROS Statement: Those systems with pertinent positive or pertinent negative responses have been documented in the HPI. Past Medical History Past Medical History: No Reported History History of Any Multi-Drug Resistant Organisms: None Reported Past Surgical History: Section, Tonsillectomy Additional Past Surgical History / Comment(s): x3 Past Anesthesia/Blood Transfusion Reactions: No Reported Reaction Past Psychological History: Depression Smoking Status: Vaper Past Alcohol Use History: None Reported Past Drug Use History: None Reported <SánchezrachnaSunshine - Last Filed: 10/25/23 01:07> General Exam <SánchezrachnaStephanieSunshine - Last Filed: 10/25/23 01:07> General appearance: alert, in no apparent distress Head exam: Present: atraumatic, normocephalic, normal inspection Eye exam: Present: normal appearance, PERRL, EOMI. Absent: scleral icterus, conjunctival injection, periorbital swelling ENT exam: Present: normal exam, mucous membranes moist Neck exam: Present: normal inspection. Absent: tenderness, meningismus, lymphadenopathy Respiratory exam: Present: normal lung sounds bilaterally. Absent: respiratory distress, wheezes, rales, rhonchi, stridor Cardiovascular Exam: Present: regular rate, normal rhythm, normal heart sounds. Absent: systolic murmur, diastolic murmur, rubs, gallop, clicks GI/Abdominal exam: Present: soft, normal bowel sounds. Absent: distended, te nderness, guarding, rebound, rigid Extremities exam: Present: normal inspection, full ROM, normal capillary refill. Absent: tenderness, pedal edema, joint swelling, calf tenderness Back exam: Present: normal inspection Neurological exam: Present: alert, oriented X3, CN II-XII intact Psychiatric exam: Present: normal affect, normal mood Skin exam: Present: warm, dry, intact, normal color. Absent: rash <Tristan Schulz - Last Filed: 11/12/23 20:35> - General Exam Comments Initial Comments: Visual Physical Exam Vital signs reviewed General: Well-appearing, nontoxic, no acute distress. Head: Normocephalic, atraumatic Eyes: PERRLA, EOMI ENT: Airway patent Chest: Nonlabored breathing Skin: No visual rash, normal skin tone Neuro: Alert and oriented 3 Musculoskeletal: No gross abnormalities (Sunshine Alvarez) Course <ZeusTristan B - Last Filed: 11/12/23 20:35> Vital Signs 10/25/23 10/25/23 01:12 06:15 Temperature 98.2 F 98.2 F Pulse Rate 72 74 Respiratory 16 16 Rate Blood Pressure 125/86 128/84 O2 Sat by Pulse 99 99 Oximetry - Reevaluation(s) Reevaluation #1: Medical records reviewed (Tristan Schulz) Reevaluation #2: Patient symptoms improved (Tristan Schulz) Reevaluation #3: Patient informed of results questions answered (Tristan Schulz) Reevaluation #4: Was pt. sent in by a medical professional or institution (AMPARO Larios, SUPERVISOR [employer], urgent care, hospital, or assisted...) When possible be specific @ -no Did you speak to anyone other than the patient for history (EMS, parent, family, police, friend...)? What history was obtained from this source @ -no Did you review nursing and triage notes (agree or disagree)? Why? @ -agree Are old charts reviewed (outside hosp., previous admission, EMS record, old EKG, old radiological studies, urgent care reports/EKG's, assisted records)? Report findings @ -yes Differential Diagnosis (chest pain, altered mental status, abdominal pain women, abdominal pain men, vaginal bleeding, weakness, fever, dyspnea, syncope, headache, dizziness, GI bleed, back pain, seizure, CVA, palpatations, mental health, musculoskeletal)? @ -prior EKG interpreted by me (3pts min.). @ -no X-rays interpreted by me (1pt min.). @ -no CT interpreted by me (1pt min.). @ -no U/S interpreted by me (1pt. min.). @ -no What testing was considered but not performed or refused? (CT, X-rays, U/S, labs)? Why? @ -none What meds were considered but not given or refused? Why? @ -none Did you discuss the management of the patient with other professionals (professionals i.e. , AMPARO, SUPERVISOR PLASMA, lab, RT, psych nurse, social security specialist, motion picture camera operator, teacher, amphibious operations officer, employment case manager)? Give summary @ -no Was smoking cessation discussed for >3mins.? @ -no Was critical care preformed (if so, how long)? @ -no Were there social determinants of health that impacted care today? How? (Homelessness, low income, unemployed, alcoholism, drug addiction, transportation, low edu. Level, literacy, decrease access to med. care, fci, rehab)? @ -none Was there de-escalation of care discussed even if they declined (Discuss DNR or withdrawal of care, Hospice)? DNR status @ -no What co-morbidities impacted this encounter? (DM, HTN, Smoking, COPD, CAD, Cancer, CVA, ARF, Chemo, Hep., AIDS, mental health diagnosis, sleep apnea, morbid obesity)? @ -none Was patient admitted / discharged? Hospital course, mention meds given and route, prescriptions, significant lab abnormalities, going to OR and other pertinent info. @ - 33 female with abdominal pain found of urinary tract infection patient feels well can be discharged home Discharge Undiagnosed new problem with uncertain prognosis? @ -no Drug Therapy requiring intensive monitoring for toxicity (Heparin, Nitro, Insulin, Cardizem)? @ -no Were any procedures done? @ -no Diagnosis/symptom? @ -UTI Acute, or Chronic, or Acute on Chronic? @ -Acute Uncomplicated (without systemic symptoms) or Complicated (systemic symptoms)? @ -Complicated Side effects of treatment? @ -no Exacerbation, Progression, or Severe Exacerbation? @ -exacerbation Poses a threat to life or bodily function? How? (Chest pain, [place], [place], pneumonia, PE, COPD, DKA, ARF, appy, cholecystitis, CVA, Diverticulitis, Homicidal, Suicidal, threat to staff... and all critical care pts) @ -no (Tristan Schulz) Reevaluation #5: Differential Abdominal Pain Women: Appendicitis, Cholecystitis, diverticulosis, ischemic bowel, pancreatitis, hepatitis, UTI, gastroenteritis, AAA, incarcerated hernia, bowel obstruction, constipation, inflammatory bowel, hepatitis, peptic ulcer disease, splenic infarction, perforated viscus, vulvitis, ovarian torsion, PID, kidney stone, placenta abruption, this is not meant to be an all-inclusive list (Tristan Schulz) Medical Decision Making <Sunshine Alvarez Last Filed: 10/25/23 01:07> - Lab Data Result diagrams: 10/25/23 01:25 10/25/23 01:25 <Tristan Schulz - Last Filed: 11/12/23 20:35> - Medical Decision Making I performed the QuickNote portion of this chart. Signed Sunshine Alvarez PA-C. (Sunshine Alvarez) 33 female with abdominal pain found of urinary tract infection patient feels well can be discharged home (Tristan Schulz) - Lab Data Lab Results 10/25/23 10/25/23 10/25/23 Range/Units 01:25 01:25 01:25 WBC 8.5 (3.8-10.6) k/uL RBC 3.91 (3.80-5.40) m/uL Hgb 8.2 L (11.4-16.0) gm/dL Hct 26.4 L (34.0-46.0) % MCV 67.6 L (80.0-100.0) fL MCH 20.9 L (25.0-35.0) pg MCHC 30.9 L (31.0-37.0) g/dL RDW 16.0 H (11.5-15.5) % Plt Count 296 (150-450) k/uL MPV 7.2 Neutrophils % 75 % Lymphocytes % 16 % Monocytes % 6 % Eosinophils % 1 % Basophils % 0 % Neutrophils # 6.4 (1.3-7.7) k/uL Lymphocytes # 1.4 (1.0-4.8) k/uL Monocytes # 0.5 (0-1.0) k/uL Eosinophils # 0.1 (0-0.7) k/uL Basophils # 0.0 (0-0.2) k/uL Hypochromasia Marked Poikilocytosis Slight Anisocytosis Slight Microcytosis Marked Sodium (137-145) mmol/L Potassium (3.5-5.1) mmol/L Chloride (98-107) mmol/L Carbon Dioxide (22-30) mmol/L Anion Gap mmol/L BUN (7-17) mg/dL Creatinine (0.52-1.04) mg/dL Est GFR (CKD-EPI)AfAm (>60 ml/min/1.73 sqM) Est GFR (CKD-EPI)NonAf (>60 ml/min/1.73 sqM) Glucose (74-99) mg/dL Plasma Lactic Acid Garrett (0.7-2.0) mmol/L Calcium (8.4-10.2) mg/dL Total Bilirubin (0.2-1.3) mg/dL AST (14-36) U/L ALT (4-34) U/L Alkaline Phosphatase (38-126) U/L Total Protein (6.3-8.2) g/dL Albumin (3.5-5.0) g/dL Amylase (30-110) U/L Lipase (23-300) U/L Urine Color Yellow Urine Appearance Clear (Clear) Urine pH 5.5 (5.0-8.0) Ur Specific [place] 1.043 H (1.001-1.035) Urine Protein 1+ H (Negative) Urine Glucose (UA) Negative (Negative) Urine Ketones Negative (Negative) Urine Blood Small H (Negative) Urine Nitrite Negative (Negative) Urine Bilirubin Negative (Negative) Urine Urobilinogen <2.0 (<2.0) mg/dL Ur Leukocyte Esterase Trace H (Negative) Urine RBC 6 H (0-5) /hpf Urine WBC 13 H (0-5) /hpf Urine WBC Clumps Rare H (None) /hpf Ur Squamous Epith Cells 1 (0-4) /hpf Urine Mucus Rare H (None) /hpf Urine HCG, Qual Not Detected (Not Detectd) 10/25/23 10/25/23 Range/Units 01:25 01:25 WBC (3.8-10.6) k/uL RBC (3.80-5.40) m/uL Hgb (11.4-16.0) gm/dL Hct (34.0-46.0) % MCV (80.0-100.0) fL MCH (25.0-35.0) pg MCHC (31.0-37.0) g/dL RDW (11.5-15.5) % Plt Count (150-450) k/uL MPV Neutrophils % % Lymphocytes % % Monocytes % % Eosinophils % % Basophils % % Neutrophils # (1.3-7.7) k/uL Lymphocytes # (1.0-4.8) k/uL Monocytes # (0-1.0) k/uL Eosinophils # (0-0.7) k/uL Basophils # (0-0.2) k/uL Hypochromasia Poikilocytosis Anisocytosis Microcytosis Sodium 136 L (137-145) mmol/L Potassium 4.3 (3.5-5.1) mmol/L Chloride 105 (98-107) mmol/L Carbon Dioxide 22 (22-30) mmol/L Anion Gap 9 mmol/L BUN 11 (7-17) mg/dL Creatinine 0.65 (0.52-1.04) mg/dL Est GFR (CKD-EPI)AfAm >90 (>60 ml/min/1.73 sqM) Est GFR (CKD-EPI)NonAf >90 (>60 ml/min/1.73 sqM) Glucose 116 H (74-99) mg/dL Plasma Lactic Acid Garrett 1.5 (0.7-2.0) mmol/L Calcium 9.2 (8.4-10.2) mg/dL Total Bilirubin 1.5 H (0.2-1.3) mg/dL AST 53 H (14-36) U/L ALT 25 (4-34) U/L Alkaline Phosphatase 50 (38-126) U/L Total Protein 7.6 (6.3-8.2) g/dL Albumin 4.3 (3.5-5.0) g/dL Amylase 41 (30-110) U/L Lipase 41 (23-300) U/L Urine Color Urine Appearance (Clear) Urine pH (5.0-8.0) Ur Specific [place] (1.001-1.035) Urine Protein (Negative) Urine Glucose (UA) (Negative) Urine Ketones (Negative) Urine Blood (Negative) Urine Nitrite (Negative) Urine Bilirubin (Negative) Urine Urobilinogen (<2.0) mg/dL Ur Leukocyte Esterase (Negative) Urine RBC (0-5) /hpf Urine WBC (0-5) /hpf Urine WBC Clumps (None) /hpf Ur Squamous Epith Cells (0-4) /hpf Urine Mucus (None) /hpf Urine HCG, Qual (Not Detectd) Disposition <Sunshine Alvarez - Last Filed: 10/25/23 01:07> Is patient prescribed a controlled substance at d/c from ED?: No Time of Disposition: 05:09 <Tristan Schulz - Last Filed: 11/12/23 20:35> Clinical Impression: Abdominal pain, UTI (urinary tract infection) Disposition: HOME SELF-CARE Condition: Good Instructions (If sedation given, give patient instructions): Urinary Tract Infection in Women (ED), Abdominal Pain (ED) Prescriptions: Cefpodoxime Proxetil [Vantin] 200 mg PO Q12HR 10 Days #20 tab Referrals: Pierre Go DO [Primary Care Provider] - 1-2 days
[2023-10-25 01:16] VITALS: RESP 16; TEMP 98.2
[2023-10-25 01:53] LABS: Anisocytosis Slight; Basophils % (A) 0 %; Eosinophils # (A) 0.1 k/uL (0-0.7); Eosinophils % (A) 1 %; HCT 26.4 % (34.0-46.0); HGB 8.2 gm/dL (11.4-16.0); Hypochromasia Marked; Lymphocytes # (A) 1.4 k/uL (1.0-4.8); Lymphocytes % (A) 16 %; MCH 20.9 pg (25.0-35.0); MCHC 30.9 g/dL (31.0-37.0); MCV 67.6 fL (80.0-100.0); Mean Platelet Volume 7.2; Microcytosis Marked; Monocytes # (A) 0.5 k/uL (0-1.0); Monocytes % (A) 6 %; Neutrophils # (A) 6.4 k/uL (1.3-7.7); Neutrophils % (A) 75 %; Platelet Count 296 k/uL (150-450); Poikilocytosis Slight; RBC 3.91 m/uL (3.80-5.40); WBC 8.5 k/uL (3.8-10.6)
[2023-10-25 02:06] LABS: ALT 25 U/L (4-34); AST 53 U/L (14-36); African American GFR (CKD) >90 (>60 ml/min/1.73 sqM); Albumin 4.3 g/dL (3.5-5.0); Alkaline Phosphatase 50 U/L (38-126); Amylase 41 U/L (30-110); Anion Gap 9 mmol/L; Blood Urea Nitrogen 11 mg/dL (7-17); Calcium 9.2 mg/dL (8.4-10.2); Carbon Dioxide 22 mmol/L (22-30); Chloride 105 mmol/L (98-107); Glucose 116 mg/dL (74-99); Lipase 41 U/L (23-300); Non-African American GFR(CKD) >90 (>60 ml/min/1.73 sqM); Potassium 4.3 mmol/L (3.5-5.1); Sodium 136 mmol/L (137-145); Total Bilirubin 1.5 mg/dL (0.2-1.3); Total Protein 7.6 g/dL (6.3-8.2)
[2023-10-25 02:19] LABS: Appearance,Urine Clear (Clear); Bilirubin,Urine Negative (Negative); Blood,Urine Small (Negative); Color,Urine Yellow; Glucose,Urine (UA) Negative (Negative); Ketones,Urine Negative (Negative); Leukocyte Esterase,Urine Trace (Negative); Mucus,Urine Rare /hpf; Nitrite,Urine Negative (Negative); PH, Urine 5.5 (5.0-8.0); Protein,Urine 1+ (Negative); RBC,Urine 6 /hpf (0-5); Specific Gravity,Urine 1.043 (1.001-1.035); Squamous Epithelial Cell,Urine 1 /hpf (0-4); Urobilinogen,Urine <2.0 mg/dL (<2.0); WBC,Urine 13 /hpf (0-5)
[2023-10-25 06:16] VITALS: BP 128/84; PULSE 74
[2023-10-25] MEDS: IBUPROFEN 600 MG STARTER PACK 4 TAB BTL PO STA (06:16)
[2023-10-25] MEDS: CEPHALEXIN 500MG STARTER PACK 4 CAP BTL PO STA (06:16)
[2023-10-25] MEDS: cefTRIAXone IN SWFI 1,000 MG/10 ML SYRINGE IVP STA (06:16)
[2023-10-25] MEDS: KETOROLAC 15 MG/ML 1 ML VIAL IVP STA (06:17)
== END 2023-10-25 06:27 | disposition home or self-care (01) ==
LOC: EC 00:50
CPT/HCPCS: 36415; 80053; 81001; 81025; 82150; 83605; 83690; 85025; 87086; 96374; 96375; 99284

== ENCOUNTER 2024-01-24 23:58 | Emergency (ER) | payer OTHER ==
[2024-01-25 00:32] LABS: Anisocytosis Slight; Basophils % (A) 1 %; Eosinophils # (A) 0.1 k/uL (0-0.7); Eosinophils % (A) 1 %; HCT 28.9 % (34.0-46.0); HGB 8.8 gm/dL (11.4-16.0); Hypochromasia Marked; Lymphocytes # (A) 2.6 k/uL (1.0-4.8); Lymphocytes % (A) 32 %; MCH 19.7 pg (25.0-35.0); MCHC 30.6 g/dL (31.0-37.0); MCV 64.5 fL (80.0-100.0); Mean Platelet Volume 7.6; Microcytosis Marked; Monocytes # (A) 0.4 k/uL (0-1.0); Monocytes % (A) 5 %; Neutrophils # (A) 4.6 k/uL (1.3-7.7); Neutrophils % (A) 58 %; Platelet Count 279 k/uL (150-450); RBC 4.48 m/uL (3.80-5.40); RDW 17.9 % (11.5-15.5); WBC 7.9 k/uL (3.8-10.6)
[2024-01-25 00:42] LABS: ALT 30 U/L (4-34); AST 97 U/L (14-36); African American GFR (CKD) >90 (>60 ml/min/1.73 sqM); Albumin 4.3 g/dL (3.5-5.0); Alkaline Phosphatase 53 U/L (38-126); Anion Gap 5 mmol/L; Blood Urea Nitrogen 15 mg/dL (7-17); Calcium 8.9 mg/dL (8.4-10.2); Carbon Dioxide 21 mmol/L (22-30); Chloride 109 mmol/L (98-107); Glucose 105 mg/dL (74-99); Magnesium 1.8 mg/dL (1.6-2.3); Non-African American GFR(CKD) >90 (>60 ml/min/1.73 sqM); Sodium 135 mmol/L (137-145); Total Protein 8.3 g/dL (6.3-8.2)
[2024-01-25 01:09] LABS: INR 0.9 (<1.2); Partial Thromboplastin Time 22.6 sec (22.0-30.0)
[2024-01-25 01:43] VITALS: RESP 16
--- NOTE | 2024-01-25 02:16 | ED ---
Chest Pain HPI - General Chief Complaint: Chest Pain Stated Complaint: Chest pain Time Seen by Provider: 01/25/24 00:54 Source: EMS Mode of arrival: EMS - History of Present Illness Initial Comments: This patient is a 34-year-old woman who presents to have evaluation of pain in the upper chest radiating to the right shoulder and right arm. The patient states pain is worse with deep breath and occasionally with movement. No associated symptoms. When the pain persisted into tonight she felt she could not go to sleep and called EMS. MD Complaint: chest pain Onset/Timin -: hour(s) Onset: during rest Pain Location: substernal, right chest Pain Radiation: RUE Quality: aching Consistency: constant Improves With: nitroglycerin Worsens With: inspiration Treatments Prior to Arrival: nitroglycerin - Related Data Previous Rx's Medication Instructions Recorded Lidocaine 5% Patch [Lidoderm 5% 1 patch TOPICAL DAILY #30 patch 12/07/22 Patch] predniSONE 10 mg PO BID #10 tab 12/07/22 Cefpodoxime Proxetil [Vantin] 200 mg PO Q12HR 10 Days #20 tab 10/25/23 Ibuprofen [Motrin] 600 mg PO Q8HR PRN #20 tab 01/25/24 Allergies Allergy/AdvReac Type Severity Reaction Status Date / Time Sulfa (Sulfonamide Allergy Rash/Hives Verified 01/25/24 00:05 Antibiotics) Review of Systems ROS Statement: Those systems with pertinent positive or pertinent negative responses have been documented in the HPI. ROS Other: All systems not noted in ROS Statement are negative. Constitutional: Denies: fever, chills, weakness Respiratory: Denies: cough, dyspnea, wheezes, hemoptysis Cardiovascular: Reports: chest pain. Denies: palpitations, edema, syncope Gastrointestinal: Denies: abdominal pain, nausea, vomiting Genitourinary: Denies: dysuria, frequency, hematuria Musculoskeletal: Denies: back pain Skin: Denies: rash Neurological: Denies: headache, weakness, numbness EKG Findings - EKG Results: EKG: interpreted by RAUL, sinus rhythm (Rate 74 bpm), normal axis, normal ST/T - Blocks, [place], Hypertrophy, ST Abn: AV and intraventricular conduction: right bundle branch block (fixed/intermittent, complete/incomplete) (Incomplete) Past Medical History Past Medical History: No Reported History History of Any Multi-Drug Resistant Organisms: None Reported Past Surgical History: Section, Tonsillectomy Additional Past Surgical History / Comment(s): x3 Past Anesthesia/Blood Transfusion Reactions: No Reported Reaction Past Psychological History: Depression Smoking Status: Vaper Past Alcohol Use History: None Reported Past Drug Use History: None Reported General Exam Limitations: no limitations General appearance: alert, in no apparent distress Head exam: Present: atraumatic, normocephalic Eye exam: Present: normal appearance. Absent: scleral icterus, conjunctival injection Neck exam: Present: normal inspection, full ROM Respiratory exam: Present: normal lung sounds bilaterally. Absent: respiratory distress, wheezes, rales, rhonchi, stridor, chest wall tenderness, accessory muscle use Cardiovascular Exam: Present: regular rate, normal rhythm, normal heart sounds. Absent: systolic murmur, diastolic murmur, rubs, gallop GI/Abdominal exam: Present: soft. Absent: distended, tenderness, guarding, rebound, rigid, mass Extremities exam: Present: normal inspection, normal capillary refill. Absent: pedal edema, calf tenderness Back exam: Present: normal inspection. Absent: CVA tenderness (R), CVA tenderness (L) Neurological exam: Present: alert Skin exam: Present: warm, dry, intact, normal color. Absent: rash Course Vital Signs 01/25/24 01/25/24 01/25/24 00:01 01:06 02:36 Temperature 98.7 F 98.1 F Pulse Rate 75 73 72 Respiratory 18 16 16 Rate Blood Pressure 136/82 126/76 116/72 O2 Sat by Pulse 100 99 98 Oximetry Chest Pain MDM - MDM The patient had chest x-ray that I interpreted as negative for acute infiltrate, pneumothorax, congestive heart failure Was pt. sent in by a medical professional or institution (, PA, HEALTHCARE CONSULTANT, urgent care, hospital, or group home...) When possible be specific @ -[No] Did you speak to anyone other than the patient for history (EMS, parent, family, police, friend...)? What history was obtained from this source @ -[No] Did you review nursing and triage notes (agree or disagree)? Why? @ -[I reviewed and agree with nursing and triage notes] Were old charts reviewed (outside hosp., previous admission, EMS record, old EKG, old radiological studies, urgent care reports/EKG's, group home records)? Report findings @ -[No old charts were reviewed] Differential Diagnosis (chest pain, altered mental status, abdominal pain women, abdominal pain men, vaginal bleeding, weakness, fever, dyspnea, syncope, headache, dizziness, GI bleed, back pain, seizure, CVA, palpatations, mental health, musculoskeletal)? @ -[Differential Chest Pain: Stable Angina, Unstable Angina, STEMI, NSTEMI Aortic Dissection, Pneumothorax, Musculoskeletal, Esophageal Spasm GERD, Cholecystitis, Pancreatitis, Zoster, this is not meant to be an all-inclusive list. EKG interpreted by me (3pts min.). @ -[As above] X-rays interpreted by me (1pt min.). @ -[None done] CT interpreted by me (1pt min.). @ -[None done] U/S interpreted by me (1pt. min.). @ -[None done] What testing was considered but not performed or refused? (CT, X-rays, U/S, labs)? Why? @ -[None] What meds were considered but not given or refused? Why? @ -[None] Did you discuss the management of the patient with other professionals (professionals i.e. , PA, HEALTHCARE CONSULTANT, lab, RT, psych nurse, social sciences department chair, sheet music salesperson, teacher, district resource officer, district manager in training)? Give summary @ -[No] Was smoking cessation discussed for >3mins.? @ -[No] Was critical care preformed (if so, how long)? @ -[No] Were there social determinants of health that impacted care today? How? (Homelessness, low income, unemployed, alcoholism, drug addiction, transportation, low edu. Level, literacy, decrease access to med. care, assisted, rehab)? @ -[No] Was there de-escalation of care discussed even if they declined (Discuss DNR or withdrawal of care, Hospice)? DNR status @ -[No] What co-morbidities impacted this encounter? (DM, HTN, Smoking, COPD, CAD, Cancer, CVA, ARF, Chemo, Hep., AIDS, mental health diagnosis, sleep apnea, morbid obesity)? @ -[None] Was patient admitted / discharged? Hospital course, mention meds given and route, prescriptions, significant lab abnormalities, going to OR and other pertinent info. @ -[Patient is a 34-year-old woman here with chest pain that is having pleuritic component. The pain has been present over 13 hours on arrival and therefore 1 set of troponin results is acceptable at this point. Discussed with patient that as there are family risk factors recommend that she follow-up with cardiology to have stress test. We discussed appropriate further care and follow-up and return parameters. Undiagnosed new problem with uncertain prognosis? @ -[No] Drug Therapy requiring intensive monitoring for toxicity (Heparin, Nitro, Insulin, Cardizem)? @ -[No] Were any procedures done? @ -[No] Diagnosis/symptom? @ -[Acute pleuritis Acute, or Chronic, or Acute on Chronic? @ -[acute Uncomplicated (without systemic symptoms) or Complicated (systemic symptoms)? @ -[Uncomplicated Side effects of treatment? @ -[No] Exacerbation, Progression, or Severe Exacerbation? @ -[No] Poses a threat to life or bodily function? How? (Chest pain, [place], [place], pneumonia, PE, COPD, DKA, ARF, appy, cholecystitis, CVA, Diverticulitis, Homicidal, Suicidal, threat to staff... and all critical care pts) @ -[No] All treatments are based on ideal body weight as in ED triage Disposition Clinical Impression: Pleuritis Disposition: HOME SELF-CARE Condition: Good Instructions (If sedation given, give patient instructions): Pleurisy (DC) Prescriptions: Ibuprofen [Motrin] 600 mg PO Q8HR PRN #20 tab PRN Reason: Pain Is patient prescribed a controlled substance at d/c from ED?: No Referrals: None,Stated [Primary Care Provider] - 1-2 days
--- NOTE | 2024-01-25 02:32 | XR ---
EXAM: XR Chest, 2 Views CLINICAL HISTORY: XR Reason: Chest Pain TECHNIQUE: Frontal and lateral views of the chest. COMPARISON: October 04, 2021 FINDINGS: Lungs: Prominent interstitial markings in the lung bases, improved since previous. No focal consolidation is seen. Pleural space: Unremarkable. No pneumothorax. Heart: Unremarkable. No cardiomegaly. Mediastinum: Unremarkable. Normal mediastinal contour. Bones/joints: Unremarkable. No acute fracture. Soft tissues: Large body habitus causing soft tissue artifact. Upper abdomen: Unremarkable as visualized. No pneumoperitoneum under the diaphragm. IMPRESSION: Prominent interstitial markings in the lung bases, improved since previous. No focal consolidation is seen.
[2024-01-25 02:36] VITALS: BP 116/72; PULSE 72; TEMP 98.1
[2024-01-25] MEDS: IBUPROFEN 400 MG TAB PO STA (02:36)
== END 2024-01-25 02:40 | disposition home or self-care (01) ==
LOC: EC 23:58
DX: R09.1 Pleurisy (principal); F17.290 Nicotine dependence, other tobacco product, uncomplicated; Z88.2 Allergy status to sulfonamides
CPT/HCPCS: 36415; 71046; 80053; 83735; 84484; 85025; 85379; 85610; 85730; 93005; 99285